=== PATIENT | female | born 1930 | race Caucasian/White ===

== ENCOUNTER 2016-10-25 10:43 | Inpatient (IN) | payer MEDICARE ==
[2016-10-25] MEDS ORDERED: FENTANYL 100 MCG/2 ML VIAL ONE (11:04)
[2016-10-25 11:47] LABS: ABSOLUTE NEUTROPHIL COUNT 8.5 K/mm3 (1.8-7.7); BASO % 0.4 % (0.2-1.0); EOS # 0.3 (0.0-0.5); EOS % 2.7 % (0.9-2.9); HEMATOCRIT 42.6 % (37.0-47.0); HEMOGLOBIN 13.8 gm/l (12.0-16.0); IMM NEUT # 0.1 K/mm3 (0-0.2); IMM NEUT% 0.7 % (0-1); LYMPH % 9.8 % (15-45); MEAN CELL VOLUME 99.1 fl (81.0-99.0); MEAN CORPUSCULAR HEMOGLOBIN 32.1 pg (27.0-31.0); MEAN CORPUSCULAR HGB CONC 32.4 g/dl (33.0-37.0); MEAN PLATELET VOLUME 12.5 fl (7.4-10.4); MONO # 0.5 (0.0-0.8); MONO % 5.1 % (4-12); NEUT % 81.3 % (43-75); PLATELET COUNT 127 K/mm3 (130-400)
[2016-10-25 11:58] LABS: INR 0.98; PARTIAL THROMBOPLASTIN TIME 22.7 SECONDS (24.5-33.0); PROTHROMBIN TIME 10.3 SECONDS (9.3-11.4)
[2016-10-25 11:59] LABS: CALCIUM 9.8 mg/dL (8.6-10.3)
--- NOTE | 2016-10-25 12:19 | RAD ---
RIGHT HIP AND AP PELVIS SERIES HISTORY: Status post fall with right hip pain. Frontal view of the pelvis with frontal and crosstable lateral views of the right hip. PELVIC RING: Grossly intact. HIP ALIGNMENT: Grossly unremarkable. HIP JOINT SPACES: Preserved. FRACTURE: Comminuted intertrochanteric fracture of the right proximal femur with notable varus angulation of the shaft. LUMBAR SPINE: Findings of prominent disc and facet degeneration. IMPRESSION: Comminuted intertrochanteric fracture of the right proximal femur with associated varus angulation.
--- NOTE | 2016-10-25 12:22 | RAD ---
PORTABLE CHEST RADIOGRAPH HISTORY: Preoperative assessment. Frontal portable chest radiograph dated 10/25/2016. COMPARISON: 03/15/2015. FINDINGS: FOCAL AIRSPACE OPACITY: No gross airspace consolidation. PLEURAL EFFUSION: None. CARDIOMEDIASTINAL SILHOUETTE: Aortic arch ectasia and calcification. PNEUMOTHORAX: None identified. OSSEOUS STRUCTURES: No grossly destructive lesions. SOFT TISSUES: Coarse calcification of the right breast, possibly related to a prior implant. This is unchanged. IMPRESSION: No acute cardiopulmonary process noted. 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
--- NOTE | 2016-10-25 12:45 | RAD ---
RIGHT KNEE 2 VIEWS HISTORY: Status post fall. Lateral and crosstable frontal views of the right knee. COMPARISON: None. ALIGNMENT: Grossly unremarkable.. JOINT SPACES: Minor medial joint space narrowing. JOINT EFFUSION: None identified taking into account obliquity. CALCIFICATIONS: No abnormal calcifications noted. FRACTURE: No displaced acute fracture. IMPRESSION: No displaced acute fracture. Minor joint space narrowing at the medial compartment..
[2016-10-25] MEDS ORDERED: ACETAMINOPHEN 325 MG TABLET PO PRN (13:53)
[2016-10-25] MEDS ORDERED: MAGNESIUM HYDROXIDE 30 ML UDCUP PO PRN ×2 (13:53→14:13)
[2016-10-25] MEDS ORDERED: MENTHOL/CETYLPYRD 1 EACH LOZENGE PO PRN (13:53)
[2016-10-25] MEDS ORDERED: BLISTEX LIPSTICK 1 EACH TP PRN (13:53)
[2016-10-25] MEDS ORDERED: SODIUM CHLORIDE 0.9% 100 ML IV PRN (13:53)
[2016-10-25] MEDS ORDERED: PNEUMOCOCCAL 23-VAL P-SAC VAC 0.5 ML VIAL IM V ONE (13:58)
[2016-10-25] MEDS ORDERED: SODIUM CHLORIDE 0.9% 500 ML IV SCH (14:00)
[2016-10-25 14:09] VITALS: BMI 28.0
[2016-10-25] MEDS ORDERED: ONDANSETRON 4 MG/2ML 2 ML VIAL IV PRN (14:16)
[2016-10-25] MEDS ORDERED: PUMP TUBING ONE ×2 (14:16→23:26)
[2016-10-25] MEDS ORDERED: HYDROMORPHONE HCL 1 MG/ML SYRINGE IV PRN (14:23)
[2016-10-25] MEDS: HYDROMORPHONE HCL 0.5 MG/0.5 ML SYRINGE IV PRN ×4 (14:27→23:32)
[2016-10-25 14:33] LABS: SPECIFIC GRAVITY 1.015 (1.001-1.030); URINE BILIRUBIN NEGATIVE (NEGATIVE); URINE BLOOD 1+ (NEGATIVE); URINE GLUCOSE (UA) NEGATIVE (NEGATIVE); URINE LEUKOCYTE ESTERASE 2+ (NEGATIVE); URINE NITRITE NEGATIVE (NEGATIVE); URINE PROTEIN NEGATIVE (NEGATIVE); URINE UROBILINOGEN NORMAL (0-1 mg/dl)
[2016-10-25 14:41] LABS: URINE APPEARANCE CLEAR; URINE COLOR YELLOW
[2016-10-25 14:47] LABS: URINE BACTERIA 1+; URINE EPITHELIAL CELLS 0-1 /hpf; URINE WBC 25-30 /hpf
--- NOTE | 2016-10-25 15:05 | PDOC36 ---
Provider Note Subject: Please see dictated ortho consult note for full consultation Summary 86F s/p fall from standing at [facility] with right hip and leg pain and inability to bear weight. The patient was diagnosed with a right comminuted intertrochanteric frx. Pt does ambulate and is in fairly good health. I spoke to her today after examining her about her options. Non-surgical treatment would lead to a low liklihood of this fracture healing. I would recommend a right hip open reduction and internal fixation with a placement of an intrameduallary nail. I spoke to the patient about the pros and cons of this procedure. The patient would like to discuss this with her daughter Jane who is her medical power of sports attorney. I gave Jane a call but she did not answer and I left a voicemail. I asked the patient to consider her options and I will try to speak with Jane later today. If we did do surgery I would like the patient to be NPO after 8am on Wednesday with plans to do surgery between 2pm and 4pm after my office hours are completed.
--- NOTE | 2016-10-25 16:17 | HP ---
LEOPOLDO MENG [id number] DATE OF : 1930 DATE OF ADMISSION: 10/25/2016 IDENTIFICATION: Ms. Meng is an 86-year-old followed by Dr. Philip. CHIEF COMPLAINT: Right hip pain. HISTORY OF PRESENT ILLNESS: The patient was ambulating today at about 9:30 when her legs got tangled up and she fell. She had immediate pain in the right hip and was unable to stand back up. She was brought to [facility] Emergency Room where x-ray reveals a comminuted intertrochanteric fracture of the right proximal femur. She was referred to the hospitalist service for admission and Dr. Tan for repair of the fracture. REVIEW OF SYSTEMS: HEENT: No headache, lightheadedness or loss of consciousness. She simply tripped. Denies current problems with ears, eyes, nose or throat. Respiratory: No dyspnea, or cough. Cardiac: No chest pain, or palpitations. Gastrointestinal: No nausea or vomiting. She does have some chronic reflux symptoms. She had some abdominal pain a few days ago, but that has resolved. She does tend toward constipation. No hematochezia, or melena. Genitourinary: No current symptoms, but frequent urinary tract infections. Musculoskeletal: She has chronic right shoulder pain, chronic back pain, and chronic mostly left hip pain. PAST MEDICAL HISTORY: 1. Hypertension. 2. Lumbar degenerative disk disease. 3. Gastroesophageal reflux disease. 4. Chronic anxiety and depression. 5. Chronic kidney disease stage III. 6. Cerebrovascular disease with evidence of small vessel disease on brain imaging. 7. Osteoporosis. 8. Recurrent urinary tract infection. 9. Diverticulosis. PAST SURGICAL HISTORY: 1. Bladder sling procedure. 2. 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 3. Bilateral breast reduction. 4. Partial colectomy. 5. Cholecystectomy. 6. Bilateral cataracts. ALLERGIES: REPORTED TO CEFUROXIME WHICH CAUSED SWELLING AND MUSCLE WEAKNESS. MEDICATIONS: 1. MiraLax 17 g by mouth daily. 2. Diltiazem ER 120 mg daily. 3. Docusate sodium 100 by mouth twice a day. 4. Losartan 25 by mouth twice a day. 5. Omeprazole 20 mg by mouth daily. 6. Milk of magnesia 30 mL by mouth daily as needed. 7. Alprazolam 1 mg at bedtime. 8. Bupropion SR 150 mg by mouth twice a day. 9. Nortriptyline 30 mg by mouth at bedtime. 10. Hydrocodone acetaminophen 5/325 two tablets which she is taking 3 times a day. 11. Sulfamethoxazole trimethoprim single strength 1 at bedtime. 12. Mylanta 30 mL as needed. 13. Diclofenac 1% gel she has been applying twice a day to the right shoulder. HABITS: No current or past tobacco, alcohol, or drugs. SOCIAL HISTORY: She is . She lives in [facility]. She does require their assistance with medication management. She is normally ambulatory with a walker and is able to dress herself, but does have assistance for bathing. IMMUNIZATIONS: She had a pneumonia vaccine in 2010, and a flu vaccination in fall 07/12. CODE STATUS: POLST form is DO NOT RESUSCITATE. FAMILY HISTORY: Positive for hypertension. PHYSICAL EXAMINATION: GENERAL: This is a pleasant elderly woman. She does appear to be in some discomfort with right hip pain. VITAL SIGNS: Temperature is 98.1 degrees Fahrenheit. Pulse is 85. Blood pressure is 203/81 with acute pain. Respiratory rate is 18. Oxygen saturation is 98% on room air. HEENT: Pupils equal, round, and reactive. Extraocular muscles intact status post lens replacement. Oropharynx is moist. Dentition in moderate condition. NECK: No jugular venous distention, or bruits. CHEST: Clear to auscultation. HEART: Regular with 2 to 3/6 systolic murmur that does radiate to the carotids. ABDOMEN: Soft, nontender, normal bowel tones. No organomegaly. EXTREMITIES: Decreased, but palpable dorsalis pedis pulses, right leg is externally rotated and shortened. NEUROLOGIC: Patient is alert and oriented, and does not show focal deficits. LABORATORY DATA: White blood cell count is 10.5, hemoglobin and hematocrit 13.8 and 42.6, and platelets 127. INR is 0.98. PTT is 22.7. Sodium is 135, potassium 4.5, chloride 98, C02 of 29, BUN 17, creatinine 0.9, and glucose 114. DIAGNOSTIC IMAGIN. Chest x-ray: No acute findings. 2. Pelvic x-ray: Right comminuted intertrochanteric femur fracture. 3. Knee x-ray: Osteoarthritis with joint space narrowing on the medial compartment, no acute fracture. 4. Electrocardiogram: Sinus rhythm with Q-wave in V1 through V4, prior anteroseptal myocardial infarction. No acute changes. ASSESSMENT: Ms. Pink is an 86-year-old assisted living resident who presents with acute right intertrochanteric femur fracture. She has underlying hypertension, gastroesophageal reflux disease, anxiety and depression, mild chronic kidney disease, and lumbar degenerative disk disease with osteoporosis. PLAN: 1. Admit to Med Surge. 2. Intravenous hydromorphone and ondansetron as needed for symptom control. 3. We will give her an IV fluid bolus now, and allow her to eat this evening and nothing by mouth after breakfast tomorrow for surgery tomorrow afternoon. 4. Start IV fluid hydration at midnight. 5. Continue outpatient medications except replace omeprazole with pantoprazole, and hold the hydrocodone. 6. Preoperative venous thromboembolism prophylaxis with intermittent pneumatic compression sleeves. Postoperative we will defer to orthopedic surgery. 7. DO NOT RESUSCITATE status. 8. Further care as indicated by clinical course. FERNANDO/hussein cc: Roman Philip MD
[2016-10-25] MEDS: PANTOPRAZOLE 40 MG TABLET DR PO SCH (16:26)
[2016-10-25] MEDS: HYDROCODONE/ACETAMINOPHEN 5/325MG TABLET PO PRN ×2 (17:46→20:53)
[2016-10-25] MEDS: SULFAMETH PO SCH (20:46)
[2016-10-25] MEDS: TRIMETH PO SCH (20:46)
[2016-10-25] MEDS: NORTRIPTYLINE HCL 10 MG CAPSULE PO SCH (20:49)
[2016-10-25] MEDS: LOSARTAN POTASSIUM 50 MG TABLET PO SCH (20:51)
[2016-10-25] MEDS: BUPROPION HCL 150 MG SR TABLET PO SCH (20:52)
[2016-10-25] MEDS: DOCUSATE SODIUM 100 MG CAPSULE PO SCH (20:53)
[2016-10-25] MEDS ORDERED: ALPRAZOLAM 0.25 MG TABLET PO SCH (21:00)
[2016-10-25] MEDS ORDERED: DOCUSATE SODIUM 100 MG CAPSULE PO SCH (21:00)
[2016-10-25] MEDS: D5 1/2NS with 20 mEq KCL 1,000 ML IV SCH (23:32)
[2016-10-26] MEDS ORDERED: CLINDAMYCIN 600 MG PREMIX 600 MG in Premix (D5W) 50 ml 1 EACH IV PRN (06:00)
[2016-10-26 06:03] LABS: CALCIUM 9.4 mg/dL (8.6-10.3); HEMATOCRIT 39.4 % (37.0-47.0); HEMOGLOBIN 13.3 gm/l (12.0-16.0); MEAN CELL VOLUME 98.3 fl (81.0-99.0); MEAN CORPUSCULAR HEMOGLOBIN 33.2 pg (27.0-31.0); MEAN CORPUSCULAR HGB CONC 33.8 g/dl (33.0-37.0); RED CELL DISTRIBUTION WIDTH 12.7 % (11.5-14.5)
[2016-10-26] MEDS: D5 1/2NS with 20 mEq KCL 1,000 ML IV SCH (07:19)
[2016-10-26] MEDS: HYDROMORPHONE HCL 0.5 MG/0.5 ML SYRINGE IV PRN ×2 (07:19→09:46)
[2016-10-26] MEDS: DILTIAZEM HCL CD 120 MG CAPSULE PO SCH (09:17)
[2016-10-26] MEDS: LOSARTAN POTASSIUM 50 MG TABLET PO SCH ×2 (09:17→21:46)
[2016-10-26] MEDS: PANTOPRAZOLE 40 MG TABLET DR PO SCH (09:20)
[2016-10-26] MEDS: POLYETHYLENE GLYCOL 3350 17 G POWD.SUSP PO SCH (09:21)
[2016-10-26] MEDS: BUPROPION HCL 150 MG SR TABLET PO SCH ×2 (09:21→21:45)
[2016-10-26] MEDS: DOCUSATE SODIUM 100 MG CAPSULE PO SCH ×2 (09:21→21:45)
[2016-10-26] MEDS ORDERED: IV START KIT ONE ×2 (09:22→14:56)
[2016-10-26] MEDS ORDERED: HYDROMORPHONE HCL 1 MG/ML SYRINGE IV PRN ×2 (09:44→16:26)
[2016-10-26] MEDS ORDERED: HYDROMORPHONE HCL 0.5 MG/0.5 ML SYRINGE IV PRN (09:44)
[2016-10-26] MEDS ORDERED: PROPOFOL 60 ML IV ONE (14:06)
[2016-10-26] MEDS ORDERED: LIDOCAINE 2% (PRES FREE) 5 ML VIAL ONE ×2 (14:06→19:20)
[2016-10-26] MEDS ORDERED: FENTANYL 100 MCG/2 ML VIAL ONE ×2 (14:07→18:19)
[2016-10-26] MEDS ORDERED: MIDAZOLAM HCL 1 MG/ML 2ML VIAL ONE (14:07)
[2016-10-26] MEDS ORDERED: LACTATED RINGERS 1,000 ML ONE (14:18)
[2016-10-26] MEDS ORDERED: CLINDAMYCIN 600 MG PREMIX 50 ML IV ONE (14:45)
[2016-10-26] MEDS ORDERED: SODIUM CHLORIDE 0.9% FLUSH 10 ML ONE (14:56)
[2016-10-26] MEDS ORDERED: SPINAL PROCEDURAL TRAY 1 EACH ONE (15:04)
[2016-10-26] MEDS ORDERED: KETAMINE HCL UD SYRINGE 100 MG/2 ML IV ONE (15:05)
--- NOTE | 2016-10-26 15:58 | CONS ---
LEOPOLDO MENG : 1930 [id number] DATE OF ADMISSION: October 25, 2016 CHIEF COMPLAINT: I fell trying to get a towel and hurt my right hip. HISTORY OF PRESENT ILLNESS: The patient is an 86-year-old female who sustained a fall at her assisted living, [facility], when she was walking across the room. The patient states she just lost her balance. She did not hit her head, resulting in falling directly on to her right side. She states that prior to this she had no pain on this side. Overall, the patient states that she has been in fairly good health. She has a number of different chronic medical problems, but no problems with ambulation prior to this. She has had some problems with her balance. The patient's PCP is Dr. Philip. Jane, who is her daughter, is her healthcare power of attorney at law, but is not here today. The patient would like to know my recommendations regarding her fracture and whether nonoperative or surgical treatment is warranted. 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 Thompson, spinal stenosis, ovarian cysts, urinary retention, as well as depression and anxiety. ALLERGIES: Cefuroxime and Amlodipine. I am not sure the reaction. MEDICATIONS: In looking at her [facility] chart, the patient's home medications include: Diclofenac [place], 5/325mg. Alprazolam Tylenol Motrin Milk of magnesia Chronic Bactrim due to her urinary condition. This is 400/80, 1 tab by mouth a day. Losartan, 25mg tabs, 1 tab twice a day. Diltiazem Nortriptyline Omeprazole Bupropion Colace Bisacodyl Daily aspirin SOCIAL HISTORY: The patient has 3 children. Her son Collin lives in [place], her other son Logan lives in [place] and her daughter Jane lives in [facility]. She is a . She was to close to 50 years. He was a systems checkout mechanic and they lived most of their lives in [place]. REVIEW OF SYSTEMS: The patient notes no recent fevers, colds, chills although she does have some problems with her balance. When Dr. Thompson saw her back in November of 2015 the patient had some evidence of trochanteric bursitis. Dr. Thompson gave her a left greater trochanteric injection which did not help her hip pain, which may be due to her underlying osteoarthritis. The patient states that overall she has been in good health. PHYSICAL EXAMINATION: Vital signs: Temperature on the floor is 98, the patient has an elevated BP of 195/102, heart rate 76, 93% on room air. HEENT: EOMI bilaterally HEART: Regular rate LUNGS: Clear to auscultation bilaterally. ABDOMEN: The patient has a well-healed scar on her abdomen from previous surgery. The patient is lying in her bed. She is very painful with any motion on the right leg, it is shortened and externally rotated. The patient has 4/5 strength of her EHL, TA, GA and peroneals on the right. On the left side, or the non-injured side, she has 5/5 strength of her EHL, TA, GA and peroneals. The patient has a 1+ PT pulse bilaterally. Capillary refill is less than 2 seconds. Any ROM or motion of the right leg is painful. The patient has full ROM of the left side. LABS: WBC: 10.5 Hematocrit: 42.6 Platelets: 127 Sodium: 135 Potassium: 4.5 Chloride: 98 Bi-carb: 29 BUN: 17 Creatinine: 0.9 Glucose: 114 INR: 0.98 The patient has a type and screen that has been ordered. The patient has an active DNR/DNI. RADIOGRAPHS: Xrays performed on 10/25/16 demonstrate signs of a comminuted right intertrochanteric fracture with a varus angulation of her femoral neck. The greater trochanter has collapsed into the shaft itself. The fracture itself goes into the lesser trochanter. The patient has a canal diameter between 11 and 12. On the lateral view the patient has a normal bow and the canal is measured on this view closer to 12mm at its isthmus. Knee xrays were normal; no signs of a more distal femoral fracture. Chest xray performed on 10/25/16 demonstrates aortic arc ectasia and some calcification. No gross destructive lesions, no calcification of the right breast, otherwise normal appearing findings. IMPRESSION: The patient is an 86-year-old female with signs of a comminuted right intertrochanteric fracture. PLAN: I talked to the patient regarding her injury. Because of her weightbearing status, which was weightbearing as tolerated, my recommendation for the patient would be to consider surgical treatment. My recommendation would be a right hip intertrochanteric cephalomedullary nail to help treat this fracture pattern. I told the patient that ideally we would do this surgery tomorrow. I told her the risks of treating her nonoperatively is that the patient would have an inability to bear weight on this leg, most likely resigning her to bed rest having increased morbidity and mortality. Because she was weightbearing prior to this injury, my recommendation would be for moving ahead with surgery acknowledging the fact that any surgery in somebody her age with her medical comorbidities is risky. For this reason her DNR/DNI would have to be suspended. I talked to the patient at length regarding this. She would feel more comfortable if she could talk to her daughter first, which is more than reasonable. I asked Dr. Warner to make her NPO after 8am and for the patient to f/u with me with a phone call as to what her decision would be. We will plan to potentially do this surgery tomorrow. I will order Clindamycin surgery consultant to the OR due to the fact that the patient has a Cephalosporin allergy. I asked the patient to call with any questions or concerns. Overnight we will treat her with [place] for pain control. BLP: CC: Norma Villagomez
[2016-10-26] MEDS ORDERED: ATROPINE SULFATE 0.4 MG/1 ML VIAL IV PRN (16:26)
[2016-10-26] MEDS ORDERED: PROMETHAZINE HCL 25 MG/ML VIAL IM PRN (16:26)
[2016-10-26] MEDS ORDERED: MEPERIDINE 25 MG/ML SYRINGE IV PRN (16:26)
[2016-10-26] MEDS ORDERED: FENTANYL 100 MCG/2 ML VIAL IV PRN (16:26)
[2016-10-26] MEDS ORDERED: NALOXONE HCL 0.4 MG/ML VIAL IV PRN (16:26)
[2016-10-26] MEDS ORDERED: ONDANSETRON 4 MG/2ML 2 ML VIAL IV PRN ×2 (16:26→20:22)
[2016-10-26] MEDS ORDERED: LACTATED RINGERS 1,000 ML IV SCH (16:30)
[2016-10-26] MEDS ORDERED: PHENYLEPHRINE 10 MG/1 ML (1%) VIAL ONE (16:33)
--- NOTE | 2016-10-26 20:09 | PCMBPN ---
Brief Post Op Note: Date of Procedure: 10/26/16 Preoperative Diagnosis: 1. Right hip intertrochanteric fracture Postoperative Diagnosis: 1. [Same] Procedure: right hip intertrochanteric frx open reduction and internal fixation with placement of an intrameduallary nail Surgeon: Gary Tan MD Assist: Avni GROVE Anesthesia: spinal Findings: Pt had a comminuted greater trochanter and continued varus position of the femoral neck. A Morse and Nephew Intertan Long nail 36mm x 10mm. Reamed up to 12.5mm with a 90mm femoral neck screw, 85 compression screw. 35mm and 40mm distal locking screws Condition: stable vitals, transferred to pacu Complications: None IV Fluids: 2200 mLs of LR Urine Output: 120 mLs Estimated Blood Loss: 150 mLs Tourniquet Time: [N/A] Specimens: [N/A] Implants: Morse and Nephew Intertan Nail Drains: [N/A] PLAN: WBAT On the RLE. Lovenox of DVT prophylaxis. Oxycodone and Morphine for pain control.
[2016-10-26] MEDS ORDERED: CALCIUM CARBONATE 500 MG TAB.CHEW PO PRN (20:22)
[2016-10-26] MEDS ORDERED: MORPHINE SULFATE 4 MG/ML SYRINGE IV PRN (20:22)
--- NOTE | 2016-10-26 20:24 | RAD ---
PELVIS COMPARISON: Pelvis and right hip, 10/25/2016 HISTORY: Medially postop open reduction internal fixation of right hip fracture. FINDINGS: Views: AP pelvis. Bones: Reduction of right femur intertrochanteric fracture with placement of antegrade intramedullary nail and 2 screws in the right femoral head and neck. Joints: Normal. Soft tissues: Normal. IMPRESSION: 1. Successful reduction of right femur intertrochanteric fracture with internal fixation hardware in satisfactory position.
--- NOTE | 2016-10-26 20:29 | RAD ---
HIP RIGHT 1 VIEW COMPARISON: Right femur 2 views 10/26/2016. HISTORY: Immediately postop open reduction internal fixation of right femur intertrochanteric fracture. FINDINGS: Views: Crosstable lateral view of the right hip. Bones: Satisfactory position of the internal fixation hardware across the intertrochanteric fracture. Joints: Normal. Soft tissues: Normal. IMPRESSION: 1. Satisfactory position of the internal fixation hardware across the intertrochanteric fracture.
--- NOTE | 2016-10-26 20:31 | RAD ---
FEMUR RIGHT COMPARISON: Pelvis one view, 10/26/2016 HISTORY: Immediately postop open reduction internal fixation of right femur intertrochanteric fracture. Views: Right femur AP and lateral FINDINGS: Bones: The distal end of the intramedullary nail was imaged. Satisfactory position. Joints: Normal lateral view of the right knee. Soft tissues: Normal. IMPRESSION: Satisfactory position of the intramedullary nail in the right femur.
--- NOTE | 2016-10-26 20:43 | RAD ---
HIP RIGHT 2 VIEWS PORTABLE COMPARISON: Pelvis and right hip, 3 views, 10/25/2016 HISTORY: Intraoperative radiographs, open reduction internal fixation of right femur intertrochanteric fracture. FINDINGS: Views: AP and lateral views of the right femur. Fluoroscopy time 358.8 seconds Bones: Satisfactory positioning of the internal fixation hardware, including an intramedullary nail and 2 screws in the right femoral neck and head. Satisfactory repositioning of the displaced intertrochanteric fracture. Joints: Normal. Soft tissues: Normal. IMPRESSION: 1. Satisfactory positioning of right femur intertrochanteric fracture after open reduction internal fixation.
[2016-10-26] MEDS ORDERED: PUMP TUBING ONE (21:33)
[2016-10-26] MEDS: LACTATED RINGERS 1,000 ML IV SCH (21:40)
[2016-10-26] MEDS: NORTRIPTYLINE HCL 10 MG CAPSULE PO SCH (21:45)
[2016-10-26] MEDS: ASCORBIC ACID 500 MG TABLET PO SCH (21:45)
[2016-10-26] MEDS: ALPRAZOLAM 1 MG TABLET PO SCH (21:45)
[2016-10-26] MEDS: ACETAMINOPHEN 500 MG TABLET PO SCH (21:45)
[2016-10-26] MEDS: TRIMETH PO SCH (21:46)
[2016-10-26] MEDS: SULFAMETH PO SCH (21:46)
[2016-10-26] MEDS: CLINDAMYCIN 600 MG PREMIX 600 MG in Premix (D5W) 50 ml 1 EACH IV SCH (21:55)
--- NOTE | 2016-10-26 22:34 | PDOC43 ---
- Subjective Chief Complaint: Rt. hip pain Subjective: Reports Pain Tolerable, Denies Chest Pain, Denies Fever - Objective Vital Signs Temperature 97.9 F 10/26/16 21:05 Pulse Rate 81 10/26/16 21:05 Respiratory Rate 18 10/26/16 21:05 Blood Pressure 157/76 10/26/16 21:05 O2 Saturation by Pulse Oximetry 96 10/26/16 21:05 Oxygen Delivery Method Non-Rebreather Oxygen Flow Rate 10 Intake and Output 10/25/16 10/26/16 10/27/16 06:59 06:59 06:59 Intake Total 480 1184 Output Total 700 Balance -220 1184 General: Alert, Oriented x3, Cooperative, No Acute Distress HEENT: Mucous membr. moist/pink Lungs: Clear to Auscultation Bilaterally Cardiovascular: Regular Rate and Rhythm Abdomen: Soft, Normal Bowel Sounds, Non-Distended, No Tenderness Extremities: No Edema Skin: Warm, Dry, Intact Wound: Dressing Clean/Dry/Intact Laboratory 10/26/16 05:15 10/26/16 05:15 10/26/16 05:15 RBC 4.01 L MCH 33.2 H Anion Gap 7 L Estimated GFR 79 H Current Medications: Current meds reviewed in EMR. - Problems: Assessment/Plan (1) Femur fracture, right Qualifiers: Encounter type: initial encounter Femur location: intertrochanteric Fracture type: closed Fracture alignment: displaced Qualifier Code: ( S72.141A) Displaced intertrochanteric fracture of right femur, initial encounter for closed fracture Status: Acute Assessment/Plan: S/P ORIF today without complications-per ortho (2) CKD (chronic kidney disease) stage 3, GFR 30-59 ml/min Status: Chronic Assessment/Plan: Per H and P but GFR currently 79 (3) GERD (gastroesophageal reflux disease) Qualifiers: Esophagitis presence: esophagitis presence not specified Qualifier Code : (K21.9) Gastro-esophageal reflux disease without esophagitis Status: Chronic Assessment/Plan: stable on PPI therapy (4) HTN (hypertension), benign Status: Chronic Assessment/Plan: Parameters for meds ordered (5) Lumbar degenerative disc disease Status: Chronic Assessment/Plan: with some chronic LBP (6) Osteoporosis Status: Chronic Assessment/Plan: associated with femur fracture-calcium plus D-further Rx deferred to outpatient provider (7) ASB (asymptomatic bacteriuria) Status: Acute Assessment/Plan: awaiting Cx results, on Bactrim prophylactic therapy VTE Prophylaxis: mech measures Disposition: likely will need SNF care
[2016-10-27] MEDS: OXYCODONE HCL 5 MG TABLET PO PRN ×2 (00:59→09:09)
[2016-10-27] MEDS: MORPHINE SULFATE 2 MG/ML SYRINGE IV PRN (02:47)
[2016-10-27] MEDS: CLINDAMYCIN 600 MG PREMIX 600 MG in Premix (D5W) 50 ml 1 EACH IV SCH (04:04)
[2016-10-27] MEDS: ACETAMINOPHEN 500 MG TABLET PO SCH ×5 (04:04→21:29)
[2016-10-27 06:06] LABS: HEMATOCRIT 28.8 % (37.0-47.0); HEMOGLOBIN 9.6 gm/l (12.0-16.0); MEAN CELL VOLUME 97.6 fl (81.0-99.0); MEAN CORPUSCULAR HEMOGLOBIN 32.5 pg (27.0-31.0); MEAN CORPUSCULAR HGB CONC 33.3 g/dl (33.0-37.0); RED CELL DISTRIBUTION WIDTH 12.5 % (11.5-14.5)
[2016-10-27 06:23] LABS: CALCIUM 8.9 mg/dL (8.6-10.3)
[2016-10-27] MEDS: LACTATED RINGERS 1,000 ML IV SCH ×2 (06:26→14:49)
[2016-10-27] MEDS: D5 1/2NS with 20 mEq KCL 1,000 ML IV SCH (07:17)
--- NOTE | 2016-10-27 07:46 | PDOC43 ---
- Subjective Subjective: Reports Pain Tolerable (Pt says she is doing ok from a pain control standpoint but is a bit confused. Family is not here yet this morning to establish if this is her baseline), Reports Vomiting, Denies Chest Pain, Denies Shortness of Breath, Denies Nausea - Objective Vital Signs Temperature 98.4 F 10/27/16 02:36 Pulse Rate 98 10/27/16 02:36 Respiratory Rate 20 10/27/16 02:36 Blood Pressure 158/69 10/27/16 02:36 O2 Saturation by Pulse Oximetry 98 10/27/16 02:36 Oxygen Delivery Method Nasal Cannula Oxygen Flow Rate 2 Laboratory 10/27/16 05:15 10/27/16 05:15 10/27/16 05:15 RBC 2.95 L MCH 32.5 H Estimated GFR 94 H Active Medication Orders Category Date Time Status Acetaminophen [Tylenol] Med 10/26/16 22:00 Active 1,000 mg PO Q6H Alprazolam [Xanax] Med 10/26/16 21:00 Active 1 mg PO BEDTIME Ascorbic Acid [Vitamin C] Med 10/26/16 21:00 Active 500 mg PO BID Bisacodyl [Dulcolax] Med 10/29/16 19:39 Active 10 mg NM DAILY PRN Bupropion HCl [Wellbutrin Sr] Med 10/25/16 21:00 Active 150 mg PO BID Calcium Carbonate [Tums] Med 10/26/16 20:22 Active 1,000 - 2,000 mg PO Q2H PRN Calcium Carbonate/Vitamin D3 Med 10/27/16 09:00 Active 1 each PO BID Diltiazem HCl Cd [Cardizem Cd] Med 10/26/16 09:00 Active 120 mg PO DAILY Docusate Sodium [Colace] Med 10/26/16 21:00 Active 100 mg PO BID Enoxaparin Sodium [Lovenox] Med 10/27/16 18:08 Active 40 mg SUB-Q Q24H Lactated Ringers 1,000 ml Med 10/26/16 20:22 Active IV 125 mls/hr Lip [place] [Blistex] Med 10/25/16 13:53 Active 1 each TP PRN PRN Losartan Potassium [Cozaar] Med 10/25/16 21:00 Active 25 mg PO BID Magnesium Hydroxide [Milk of Magnesia] Med 10/27/16 19:39 Active 30 ml PO DAILY PRN Menthol/Cetylpyridinium [Cepacol] Med 10/25/16 13:53 Active 1 each PO PRN PRN Morphine Sulfate Med 10/26/16 20:22 Active 2 - 4 mg IV Q4H PRN Morphine Sulfate Med 10/26/16 20:32 Active 2 - 4 mg IV Q4H PRN Multivitamins [One-A-Day] Med 10/27/16 09:00 Active 1 tab PO DAILY Nortriptyline HCl [Pamelor] Med 10/25/16 21:00 Active 30 mg PO BEDTIME Ondansetron 4 mg/2ml Vial [Zofran] Med 10/26/16 20:22 Active 4 - 6 mg IV Q6H PRN Oxycodone HCl [Roxicodone] Med 10/26/16 20:22 Active 5 - 10 mg PO Q4H PRN Pantoprazole Sodium [Protonix] Med 10/25/16 14:00 Active 40 mg PO DAILY Polyethylene Glycol 3350 [Miralax] Med 10/26/16 09:00 Active 17 g PO DAILY Sodium Chloride 0.9% Flush [Normal Saline 10ml Flush] Med 10/26/16 20:22 Active 10 - 50 ml IV PRN PRN Sodium Chloride 0.9% Flush [Normal Saline 10ml Flush] Med 10/27/16 01:00 Active 10 ml IV Q8HR Sulfamethoxazole/Trimethoprim [Septra Ss] Med 10/25/16 21:00 Active 1 each PO BEDTIME Intake and Output 10/25/16 10/26/16 10/27/16 23:59 23:59 23:59 Intake Total 480 1184 3963 Output Total 700 1920 Balance -220 1184 2043 General: Afebrile - Right Lower Extremity Incision: Dressing Clean/Dry/Intact, Sullivan Intact, No Erythema, No Ecchymosis Motor: Extensor Hallucis Longus: 4/5, Tibialis Anterior: 4/5, Gastrocnemius: 4/5 , Peroneals: 4/5 Gross Sensation to Light Touch: Present: Deep Peroneal Nerve, Superficial Peroneal Nerve Capillary Refill: < 3 Seconds - Problems (1) Fracture, intertrochanteric, right femur Status: Acute - Disposition POD#1 s/p right hip intertrochanteric frx ORIF with IMN --WBAT on the RLE for transfers bed to chair --Lovenox for DVT on POD#1 --Clinda for 24 hours post-op --PT and OT to work with pt today --HCT is 28. If pt is orthostatic, would consider transfusion of PRBCs
[2016-10-27] MEDS ORDERED: HYDROCODONE/ACETAMINOPHEN 5/325MG TABLET PO PRN (08:56)
[2016-10-27] MEDS ORDERED: CALCIUM CARBONATE 600 MG/VITAMIN D3 400 UNIT/TABLET PO SCH (09:00)
[2016-10-27] MEDS: POLYETHYLENE GLYCOL 3350 17 G POWD.SUSP PO SCH (09:07)
[2016-10-27] MEDS: PANTOPRAZOLE 40 MG TABLET DR PO SCH (09:09)
[2016-10-27] MEDS: DOCUSATE SODIUM 100 MG CAPSULE PO SCH ×2 (09:09→20:53)
[2016-10-27] MEDS: DILTIAZEM HCL CD 120 MG CAPSULE PO SCH (09:09)
[2016-10-27] MEDS: LOSARTAN POTASSIUM 50 MG TABLET PO SCH ×2 (09:09→20:54)
[2016-10-27] MEDS: MULTIVITAMINS 1 TAB TABLET PO SCH (09:10)
[2016-10-27] MEDS: ASCORBIC ACID 500 MG TABLET PO SCH ×2 (09:10→20:53)
[2016-10-27] MEDS: BUPROPION HCL 150 MG SR TABLET PO SCH ×2 (09:10→20:53)
[2016-10-27] MEDS: CEFTRIAXONE 1 GRAM DUPLEX 1 G in Premix (D5W) 50 ml 1 EACH IV SCH (09:48)
--- NOTE | 2016-10-27 12:48 | PDOC43 ---
- Subjective Chief Complaint: Rt. hip pain Sitting up in chair, alert and oriented. Reports only minimal right hip pain, no dyspnea or faintness. - Objective Vital Signs Temperature 98.6 F 10/27/16 11:05 Pulse Rate 106 10/27/16 11:05 Respiratory Rate 16 10/27/16 11:05 Blood Pressure 129/63 10/27/16 11:05 O2 Saturation by Pulse Oximetry 90 10/27/16 11:05 Oxygen Delivery Method Room Air Oxygen Flow Rate 0 Intake and Output 10/26/16 10/27/16 10/28/16 06:59 06:59 06:59 Intake Total 480 5147 700 Output Total 700 1920 Balance -220 3227 700 General: Alert, Oriented x3, Cooperative, No Acute Distress HEENT: Mucous membr. moist/pink Lungs: Clear to Auscultation Bilaterally Cardiovascular: Regular Rate and Rhythm, Murmur (2/6) Abdomen: Soft, Normal Bowel Sounds, No Tenderness, No Masses Extremities: Pulses Diminished but Palpable, No Edema Wound: Dressing Clean/Dry/Intact (on right hip) Neurological: Normal Speech Psych/Mental Status: Normal Mood Laboratory 10/27/16 05:15 10/27/16 05:15 10/27/16 05:15 RBC 2.95 L MCH 32.5 H Estimated GFR 94 H Current Medications: Current meds reviewed in EMR. - Problems: Assessment/Plan (1) Fracture, intertrochanteric, right femur Qualifiers: Encounter type: initial encounter Fracture type: closed Qualifier Code: (S72.141A) Displaced intertrochanteric fracture of right femur, initial encounter for closed fracture Status: Acute Assessment/Plan: S/P repair by Dr Tan 10/26 p.m. Appreciate orthopedic and OT/PT care. Doing well. (2) Anxiety and depression Status: Chronic Assessment/Plan: Stable (3) CKD (chronic kidney disease) stage 3, GFR 30-59 ml/min Status: Chronic Assessment/Plan: Stable (4) CVD (cerebrovascular disease) Status: Chronic Assessment/Plan: stable (5) GERD (gastroesophageal reflux disease) Qualifiers: Esophagitis presence: esophagitis presence not specified Qualifier Code : (K21.9) Gastro-esophageal reflux disease without esophagitis Status: Chronic Assessment/Plan: stable on PPI therapy (6) HTN (hypertension), benign Status: Chronic Assessment/Plan: Parameters for meds ordered (7) Lumbar degenerative disc disease Status: Chronic Assessment/Plan: with some chronic LBP (8) Osteoporosis Status: Chronic Assessment/Plan: associated with femur fracture-calcium plus D, bisphosphonate treatment deferred to outpatient provider (9) Acute blood loss anemia Status: Acute Assessment/Plan: Moderate but asymptomatic, iron supplement, transfusion not indicated at this point. (10) UTI (urinary tract infection) Qualifiers: Urinary tract infection type: acute cystitis Hematuria presence: without hematuria Qualifier Code: (N30.00) Acute cystitis without hematuria Status: Acute Assessment/Plan: With Proteus mirabilis present on admit but asymptomatic. Treated with ceftriaxone. (11) Hyponatremia Status: Acute Assessment/Plan: due to IVF hydration, SL IV and repeat BMP in a.m. VTE Prophylaxis: enoxaparin started today. Disposition: likely will need SNF care
[2016-10-27] MEDS: CALCIUM CARBONATE 600 MG/VITAMIN D3 400 UNIT/TABLET PO SCH ×2 (14:11→20:53)
[2016-10-27] MEDS: ASCORBIC ACID 250 MG TABLET PO SCH (14:11)
[2016-10-27] MEDS: FERROUS SULFATE (65 Fe) 325 MG TABLET PO SCH (14:11)
[2016-10-27] MEDS: ENOXAPARIN SODIUM 40 MG/0.4 ML SYRINGE SUB-Q SCH (17:07)
[2016-10-27] MEDS ORDERED: MAGNESIUM HYDROXIDE 30 ML UDCUP PO PRN (19:39)
[2016-10-27] MEDS: ALPRAZOLAM 1 MG TABLET PO SCH (20:54)
[2016-10-27] MEDS: NORTRIPTYLINE HCL 10 MG CAPSULE PO SCH (20:54)
[2016-10-28] MEDS: OXYCODONE HCL 5 MG TABLET PO PRN ×4 (02:36→15:33)
[2016-10-28] MEDS: ACETAMINOPHEN 500 MG TABLET PO SCH ×6 (02:36→21:32)
[2016-10-28] MEDS ORDERED: IV START KIT ONE ×3 (05:16→23:37)
[2016-10-28] MEDS ORDERED: SODIUM CHLORIDE 0.9% FLUSH 10 ML ONE (05:17)
[2016-10-28 05:51] LABS: HEMATOCRIT 26.4 % (37.0-47.0); HEMOGLOBIN 8.8 gm/l (12.0-16.0); MEAN CELL VOLUME 97.4 fl (81.0-99.0); MEAN CORPUSCULAR HEMOGLOBIN 32.5 pg (27.0-31.0); MEAN CORPUSCULAR HGB CONC 33.3 g/dl (33.0-37.0); RED CELL DISTRIBUTION WIDTH 12.9 % (11.5-14.5)
--- NOTE | 2016-10-28 08:29 | PDOC43 ---
- Subjective Subjective: Reports Other (moderate deep mid thigh pain, did not sleep well last night--c/o commotion in room last night. RN states patient pulled off her distal femur small post op dressing last night and patient pulled out her Stack. ), Denies Chest Pain, Denies Shortness of Breath, Denies Nausea, Denies Vomiting , Denies Fever - Objective Vital Signs Temperature 97.5 F 10/28/16 03:46 Pulse Rate 100 10/28/16 03:46 Respiratory Rate 17 10/28/16 07:00 Blood Pressure 157/66 10/28/16 03:46 O2 Saturation by Pulse Oximetry 94 10/28/16 03:46 Oxygen Delivery Method Room Air Oxygen Flow Rate 0 Laboratory 10/28/16 05:15 10/28/16 05:15 RBC 2.71 L MCH 32.5 H Active Medication Orders Category Date Time Status Acetaminophen [Tylenol] Med 10/26/16 22:00 Active 1,000 mg PO Q6H Alprazolam [Xanax] Med 10/26/16 21:00 Active 1 mg PO BEDTIME Ascorbic Acid [Vitamin C] Med 10/27/16 12:45 Active 250 mg PO DAILY Ascorbic Acid [Vitamin C] Med 10/26/16 21:00 Active 500 mg PO BID Bisacodyl [Dulcolax] Med 10/29/16 19:39 Active 10 mg MN DAILY PRN Bupropion HCl [Wellbutrin Sr] Med 10/25/16 21:00 Active 150 mg PO BID Calcium Carbonate [Tums] Med 10/26/16 20:22 Active 1,000 - 2,000 mg PO Q2H PRN Calcium Carbonate/Vitamin D3 Med 10/27/16 15:00 Active 1 each PO TID Ceftriaxone 1 Gram Duplex [Rocephin 1 Gram Premix] 1 g Med 10/27/16 10:00 Active Premix (D5W) 50 ml 1 each IV Q24H Diltiazem HCl Cd [Cardizem Cd] Med 10/26/16 09:00 Active 120 mg PO DAILY Docusate Sodium [Colace] Med 10/26/16 21:00 Active 100 mg PO BID Enoxaparin Sodium [Lovenox] Med 10/27/16 18:08 Active 40 mg SUB-Q Q24H FERROUS SULFATE (65 Fe) [Ferrous Sulfate] Med 10/27/16 12:45 Active 325 mg PO DAILY Lip [place] [Blistex] Med 10/25/16 13:53 Active 1 each TP PRN PRN Losartan Potassium [Cozaar] Med 10/25/16 21:00 Active 25 mg PO BID Magnesium Hydroxide [Milk of Magnesia] Med 10/27/16 19:39 Active 30 ml PO DAILY PRN Menthol/Cetylpyridinium [Cepacol] Med 10/25/16 13:53 Active 1 each PO PRN PRN Morphine Sulfate Med 10/26/16 20:22 Active 2 - 4 mg IV Q4H PRN Morphine Sulfate Med 10/26/16 20:32 Active 2 - 4 mg IV Q4H PRN Multivitamins [One-A-Day] Med 10/27/16 09:00 Active 1 tab PO DAILY Nortriptyline HCl [Pamelor] Med 10/25/16 21:00 Active 30 mg PO BEDTIME Ondansetron 4 mg/2ml Vial [Zofran] Med 10/26/16 20:22 Active 4 - 6 mg IV Q6H PRN Oxycodone HCl [Roxicodone] Med 10/26/16 20:22 Active 5 - 10 mg PO Q4H PRN Pantoprazole Sodium [Protonix] Med 10/25/16 14:00 Active 40 mg PO DAILY Polyethylene Glycol 3350 [Miralax] Med 10/26/16 09:00 Active 17 g PO DAILY Sodium Chloride 0.9% Flush [Normal Saline 10ml Flush] Med 10/26/16 20:22 Active 10 - 50 ml IV PRN PRN Sodium Chloride 0.9% Flush [Normal Saline 10ml Flush] Med 10/27/16 01:00 Active 10 ml IV Q8HR Sulfamethoxazole/Trimethoprim [Septra Ss] Med 10/25/16 21:00 Hold 1 each PO BEDTIME Intake and Output 10/26/16 10/27/16 10/28/16 23:59 23:59 23:59 Intake Total 1184 5720 300 Output Total 3220 700 Balance 1184 2500 -400 General: No Acute Distress Lungs: Normal Air Movement (no SOB with rising from chair--sitting to standing while wound is assessed.) Abdomen: Soft, No Tenderness Genitourinary: No Indwelling Urinary Cath (patient pulled Stack out last night) Skin: No Normal Color (slight facial pallor) Neurological: Alert, Normal Speech Psych/Mental Status: Normal Affect Peripheral Pulses: Right Dorsalis Pedis: 1+ - Right Lower Extremity Incision: Dressing Clean/Dry/Intact, Well Approximated, [place] Intact, Other ( scant blood on chux pad where sitting likely from pulling Stack catheter out) Motor: Extensor Hallucis Longus: 5/5, Tibialis Anterior: 5/5, Gastrocnemius: 5/5 , Peroneals: 5/5, Quadriceps: 4/5 Gross Sensation to Light Touch: Present: Deep Peroneal Nerve, Superficial Peroneal Nerve, Medial Plantar Nerve, Lateral Plantar Nerve, Sural Nerve, Saphenous Nerve Capillary Refill: < 3 Seconds Motion: Hip PROM: 0-40 flexion, ABD 0-20, ADD 0-10 - Disposition POD#2 s/p right hip intertrochanteric frx ORIF with IMN --pain is well controlled --WBAT on the RLE for transfers bed to chair --Cont Lovenox for DVT --PT and OT cont to work with pt today --HCT is 26. If pt becomes orthostatic, would consider transfusion of PRBCs-- discussed with Hospitalist.
[2016-10-28 08:42] LABS: CALCIUM 9.5 mg/dL (8.6-10.3)
[2016-10-28] MEDS: CALCIUM CARBONATE 600 MG/VITAMIN D3 400 UNIT/TABLET PO SCH ×3 (09:38→20:55)
[2016-10-28] MEDS: DILTIAZEM HCL CD 120 MG CAPSULE PO SCH (09:38)
[2016-10-28] MEDS: DOCUSATE SODIUM 100 MG CAPSULE PO SCH ×2 (09:38→20:55)
[2016-10-28] MEDS: LOSARTAN POTASSIUM 50 MG TABLET PO SCH ×2 (09:39→20:54)
[2016-10-28] MEDS: FERROUS SULFATE (65 Fe) 325 MG TABLET PO SCH (09:40)
[2016-10-28] MEDS: POLYETHYLENE GLYCOL 3350 17 G POWD.SUSP PO SCH (09:40)
[2016-10-28] MEDS: BUPROPION HCL 150 MG SR TABLET PO SCH ×2 (09:41→20:55)
[2016-10-28] MEDS: MULTIVITAMINS 1 TAB TABLET PO SCH (09:41)
[2016-10-28] MEDS: PANTOPRAZOLE 40 MG TABLET DR PO SCH (09:41)
[2016-10-28] MEDS: ASCORBIC ACID 250 MG TABLET PO SCH (09:41)
[2016-10-28] MEDS: ASCORBIC ACID 500 MG TABLET PO SCH ×2 (09:41→20:56)
[2016-10-28] MEDS: CEFTRIAXONE 1 GRAM DUPLEX 1 G in Premix (D5W) 50 ml 1 EACH IV SCH (10:15)
--- NOTE | 2016-10-28 11:20 | PDOC43 ---
- Subjective Chief Complaint: Rt. hip pain Sitting up in chair, denies pain, dyspnea or faintness when standing - Objective Vital Signs Temperature 98.4 F 10/28/16 08:37 Pulse Rate 101 10/28/16 08:37 Respiratory Rate 18 10/28/16 08:37 Blood Pressure 157/69 10/28/16 08:37 O2 Saturation by Pulse Oximetry 90 10/28/16 08:37 Oxygen Delivery Method Room Air Oxygen Flow Rate 0 Intake and Output 10/27/16 10/28/16 10/29/16 06:59 06:59 06:59 Intake Total 5147 7 Output Total 1920 1999 Balance 3227 57 General: Alert, Oriented x3, Cooperative, No Acute Distress HEENT: Mucous membr. moist/pink Lungs: Clear to Auscultation Bilaterally Cardiovascular: Regular Rate and Rhythm, Murmur (2/6) Abdomen: Soft, Normal Bowel Sounds, No Tenderness, No Masses Extremities: Edema, Normal Pulses Skin: Normal Color Neurological: Normal Speech Psych/Mental Status: Normal Mood Laboratory 10/28/16 05:15 10/28/16 05:15 10/28/16 05:15 RBC 2.71 L MCH 32.5 H Current Medications: Current meds reviewed in EMR. - Problems: Assessment/Plan (1) Fracture, intertrochanteric, right femur Qualifiers: Encounter type: initial encounter Fracture type: closed Qualifier Code: (S72.141A) Displaced intertrochanteric fracture of right femur, initial encounter for closed fracture Status: Acute Assessment/Plan: S/P repair by Dr Tan 10/26 p.m. Appreciate orthopedic and OT/PT care. Doing well. (2) Anxiety and depression Status: Chronic Assessment/Plan: Stable (3) CKD (chronic kidney disease) stage 3, GFR 30-59 ml/min Status: Chronic Assessment/Plan: Stable (4) CVD (cerebrovascular disease) Status: Chronic Assessment/Plan: stable (5) GERD (gastroesophageal reflux disease) Qualifiers: Esophagitis presence: esophagitis presence not specified Qualifier Code : (K21.9) Gastro-esophageal reflux disease without esophagitis Status: Chronic Assessment/Plan: stable on PPI therapy (6) HTN (hypertension), benign Status: Chronic Assessment/Plan: Parameters for meds ordered (7) Lumbar degenerative disc disease Status: Chronic Assessment/Plan: with some chronic LBP (8) Osteoporosis Status: Chronic Assessment/Plan: associated with femur fracture-calcium plus D started, bisphosphonate treatment deferred to outpatient provider (9) Acute blood loss anemia Status: Acute Assessment/Plan: Moderate but asymptomatic, iron supplement, transfusion not indicated at this point. (10) UTI (urinary tract infection) Qualifiers: Urinary tract infection type: acute cystitis Hematuria presence: without hematuria Qualifier Code: (N30.00) Acute cystitis without hematuria Status: Acute Assessment/Plan: With Proteus mirabilis present on admit but asymptomatic. Treated with ceftriaxone. (11) Hyponatremia Status: Acute Assessment/Plan: due to IVF hydration, resolved VTE Prophylaxis: enoxaparin started 10/27 Disposition: Plan to discharge to [facility] 10/29.
[2016-10-28] MEDS: ENOXAPARIN SODIUM 40 MG/0.4 ML SYRINGE SUB-Q SCH (18:23)
[2016-10-28] MEDS: ALPRAZOLAM 1 MG TABLET PO SCH (20:55)
[2016-10-28] MEDS: NORTRIPTYLINE HCL 10 MG CAPSULE PO SCH (20:59)
[2016-10-28] MEDS: MORPHINE SULFATE 2 MG/ML SYRINGE IV PRN ×2 (21:19→23:50)
[2016-10-29] MEDS: MORPHINE SULFATE 2 MG/ML SYRINGE IV PRN ×2 (01:56→05:33)
[2016-10-29] MEDS: ACETAMINOPHEN 500 MG TABLET PO SCH ×2 (05:33→09:13)
[2016-10-29 05:59] LABS: HEMATOCRIT 25.6 % (37.0-47.0); HEMOGLOBIN 8.5 gm/l (12.0-16.0)
[2016-10-29 07:15] VITALS: BP 108/69
[2016-10-29] MEDS ORDERED: TRAMADOL HCL 50 MG TABLET PO PRN (07:33)
[2016-10-29] MEDS ORDERED: BISACODYL 10 MG SUP ONE (07:42)
[2016-10-29] MEDS ORDERED: CEPHALEXIN 500 MG CAPSULE PO SCH (09:00)
[2016-10-29] MEDS: DILTIAZEM HCL CD 120 MG CAPSULE PO SCH (09:05)
[2016-10-29] MEDS: DOCUSATE SODIUM 100 MG CAPSULE PO SCH (09:05)
[2016-10-29] MEDS: LOSARTAN POTASSIUM 50 MG TABLET PO SCH (09:05)
[2016-10-29] MEDS: POLYETHYLENE GLYCOL 3350 17 G POWD.SUSP PO SCH (09:05)
[2016-10-29] MEDS: BUPROPION HCL 150 MG SR TABLET PO SCH (09:13)
[2016-10-29] MEDS: MULTIVITAMINS 1 TAB TABLET PO SCH (09:13)
[2016-10-29] MEDS: CALCIUM CARBONATE 600 MG/VITAMIN D3 400 UNIT/TABLET PO SCH (09:13)
[2016-10-29] MEDS: ASCORBIC ACID 250 MG TABLET PO SCH (09:13)
[2016-10-29] MEDS: PANTOPRAZOLE 40 MG TABLET DR PO SCH (09:13)
[2016-10-29] MEDS: FERROUS SULFATE (65 Fe) 325 MG TABLET PO SCH (09:13)
[2016-10-29] MEDS: ASCORBIC ACID 500 MG TABLET PO SCH (09:13)
--- NOTE | 2016-10-29 11:00 | DS ---
Yudi Choi [id number] DATE OF ADMISSION: October 25, 2016 DATE OF DISCHARGE: October 29, 2016 DISCHARG DIAGNOSES: 1. Right femur intertrochanteric fracture. 2. Chronic anxiety with depression. 3. Chronic stage II kidney disease. 4. Cerebrovascular disease, not otherwise specified. 5. Gastroesophageal reflux disease. 6. Acute blood loss anemia. 7. Urinary tract infection, basically asymptomatic bacteriuria due to Proteus Mirabilis. 8. Mild hyponatremia resolved with hydration. 9. Osteoporosis. 10. Lumbar disc disease with chronic low back pain and chronic essential hypertension. CONSULTATIONS: Included orthopedic consultation with Dr. Gary Tan on October 26. PROCEDURES PERFORMED DURING THE HOSPITALIZATION: Include right hip intertrochanteric open reduction internal fixation with placement of an intramedullary nail done on October 26, 2016. TO SUMMARIZE THE ADMISSION AND HOSPITAL COURSE: The patient is an 86-year-old female resident of the [facility] followed by Dr. Philip who presented with a ground level fall and right hip pain and was found to have a right intertrochanteric hip fracture. Workup in the emergency department showed she was hypertensive with a blood pressure of 203/81. Hemoglobin was 13.8. Creatinine was 0.9. She was referred to the hospitalist service for admission. Orthopedic consult was obtained and she underwent operative repair. On admission she was noted to have some bacteriuria with normal nitrite and a normal white count. Cultures eventually grew Proteus Mirabilis. She was treated with Rocephin and transitioned to Keflex. She had a history of allergy to cefuroxime, but was able to tolerate cephalosporins without evidence of allergy. She had a drop in her hemoglobin down to a low of 8.5, but this was asymptomatic and felt to be stable. She was started on iron therapy for this. Arrangements were made for her to go [facility] for ongoing physical therapy and occupational therapy services. PHYSICAL EXAMINATION: VITAL SIGNS: At the time of discharge her vital signs showed a temperature of 98.9, pulse 93, blood pressure 108/69, respirations 18, oxygen saturation 91% to 93% on room air. Body mass index 28.9, weight 71.6 kg. GENERAL: This is a elderly female in no acute distress. HEENT: Shows mild pallor, but moist oral mucosa. NECK: Supple without lymphadenopathy or thyromegaly. LUNGS: Clear to auscultation bilaterally. CARDIOVASCULAR: Reveals a regular rate and rhythm without a murmur. ABDOMEN: Soft, nontender, nondistended with positive bowel sounds. EXTREMITIES: No peripheral edema. The right hip incision is clean, dry, and intact. LABORATORY STUDIES: On the day of discharge hemoglobin was 8.5, hematocrit 25.6. Chemistry profile done on October 28 showed a creatinine of 0.8, normal electrolytes. Urine culture growing Proteus Mirabilis sensitive to cephalosporins. DISPOSITION: [facility]. ACTIVITY: Physical therapy and occupational therapy services evaluate and treat have been ordered. She is weightbearing as tolerated on the right lower extremity. As tolerated. DIET: Regular texture. Bowel care, skin care, podiatry care per house protocol. Two step PPD if required. Pneumonia vaccination last given on February 09, 2011. Flu vaccination last given May 25, 2016. CODE STATUS: Do not resuscitate. ALLERGY: ALTHOUGH SHE HAS A DOCUMENTED ALLERGY TO CEFUROXIME, she is not allergic to Keflex or Rocephin. DISCHARGE MEDICATIONS: 1. Tylenol 650 mg every 4 hours as needed for pain or temp over 101. 2. Magnesium hydroxide/aluminum hydroxide 15 to 30 mL every 4 hours as needed for gastrointestinal upset. 3. She will take Cardizem CD 120 mg daily. 4. Voltaren gel up to 30 gm one application topically twice daily. 5. Mylanta 30 mL every hour as needed for dyspepsia. 6. Septra single strength tablet one tablet at bedtime to be started in a week. 7. Nortriptyline 30 mg at bedtime. 8. Wellbutrin SR 150 mg twice daily. 9. Prilosec 20 mg daily. 10. Cozaar 25 mg twice daily. 11. Colace 100 mg twice daily. 12. MiraLax 17 gm daily. 13. Tramadol 50 mg every 4 hours as needed for moderate pain. 14. Girdler 5/325 one to two every 6 hours as needed for severe pain. 15. Iron sulfate 325 mg daily. 16. Lovenox 30 mg subcutaneously daily for 30 days. 17. Keflex 500 mg twice daily for 5 days. 18. Vitamin C 250 mg daily. 19. Alprazolam 1 mg at bedtime as needed for insomnia. FOLLOW UP: She will have follow up arranged with Dr. Philip at [facility]. She will have a follow up CBC on November 05, results to Dr. Philip. She will follow up with Dr. Gary Tan on November 11 at 1:00 p.m. at [facility]. JOB: [id number] CC: Dr. Gary Philip
--- NOTE | 2016-10-29 11:55 | OP ---
Yudi MENG : [id number] DATE OF PROCEDURE: October 26, 2016 PREOPERATIVE DIAGNOSIS: Right hip intertrochanteric fracture. POSTOPERATIVE DIAGNOSIS: Right hip intertrochanteric fracture. PROCEDURE: RIGHT HIP INTERTROCHANTERIC FRACTURE OPEN REDUCTION INTERNAL FIXATION AND PLACEMENT OF INTRAMEDULLARY NAIL. SURGEON: Gary Tan M.D. INSURANCE CLAIMS SPECIALIST: Jeni Lorenzo ANESTHESIA: Spinal. FINDINGS: The patient had a comminuted greater trochanter in a varus position of the femoral neck. This was improved but I had difficulty maintain a more valgus position. The femoral neck continued to be in varus and the femoral neck screw on the PA was superior in the femoral head. I was able to get compression with the neck and shaft. The patient had a [employer] InterTAN long 36 mm x 10 mm nail. The patient's femoral canal was reamed to 12.5 to try to get the nail to sit lower in the femoral neck and a 90 mm femoral neck screw, 85 mm compression screw, a 35mm distal locking screw and 40 mm distal locking screws. CONDITION: Stable vital signs and transferred to the PACU. COMPLICATIONS: None. INTRAVENOUS FLUIDS: 2200 mL of Lactated Ringers. URINE OUTPUT: 120 mL ESTIMATED BLOOD LOSS: 150 mL SPECIMENS: N/A TOURNIQUET TIME: N/A IMPLANTS: The patient had a [employer] InterTAN 125 degree nail. DRAINS: N/A PLAN: The patient will be partial weight-bearing on the right lower extremity. Lovenox will start postoperative day number one, oxycodone was used for pain control along with morphine for pain control. INDICATIONS: The patient is an 86-year-old female who sustained a fall at [facility]. Prior to the surgery I spoke to the patient and her family about her condition. She has an intertrochanteric fracture which is unstable. I told her that without surgery I think that there is a low likelihood that she would successfully be able to walk. I talked to her about the risks as well as benefit of surgery. I told her that there is risk of infection, persistent pain, fracture nonunion, hardware complications, and worsening of her femoral fracture. I cannot guarantee that placing nail will guarantee healing, but I think healing is more likely if it is in a more anatomic position. Our goal is for the patient to stand out of bed and get out to get back to her ambulatory status. I spoke to the patient as well as her daughter and son on the phone. I spoke to them about the very high risks that are involved such as postoperative delirium, confusion, infection, nonunion, cut out of the femoral screw, renal insufficiency risk of DVT, stroke or even [place]. After a lengthy conversation both on the day of her admission and today the patient signed a consent form and was ready to proceed with surgery. PROCEDURE DESCRIPTION: The patient was seen in the preoperative area where I confirmed that the right side was the correct side. The patient was here with her daughter who is her power of privacy analyst however the patient agreed to proceed and signed a consent form. I signed her right leg with my initials and the word, "yes." Her right leg was shortened and still externally rotated. I attempted to answer all of her questions. She was then seen by the anesthesia team which talked about having a spinal anesthetic. The patient was then taken to the operating room where under sterile conditions the patient had a spinal placed. The patient was then transferred from the bed to the fracture table. The patient had a safety belt in placed, the nonoperative leg or left leg was placed a well leg stout and scissored to allow the C-arm to come between her two legs. A peroneal post was in place and the patient's right foot was padded with web roll before putting it into the traction arm. At this point the C-arm was brought in confirming that we could obtain appropriate AP and lateral. I manipulated the leg and thenraction was placed on the leg improving the position of the femoral neck to a more valgus position. At this point we began to prep for the surgery. The skin was draped out and using a chlorhexidine scrub and then paint was used to clean the right leg. At this point an Ioban and bath curtain was draped over the body and we performed a final time out confirming that the right side was the correct side and that our planned procedure was a right intertrochanteric fracture open reduction internal fixation with placement of an intramedullary nail and that we had the necessary equipment and we were ready to begin the surgery. I confirmed that 600 mg of clindamycin had be given approximately 30 minutes before this time out and we were ready to begin. At this point I used a sterile marker to aurora the Ioban with the greater trochanter. I then selected a position approximately 4 cm proximal to the greater trochanter and made an incision. I then put the pin on the tip of the greater trochanter which was comminuted. I checked on the AP and lateral planes. I placed this into the intramedullary canal because of the fracture pattern I took the one step reamer and reamed to the lesser troch. Because of the loss of greater trochanter there was very little bone laterally, however with my finger I could feel that there was enough to hold the tip of the nail. I then selected a ball tip guide wire and placed this in the canal. I had to use the finger device which was a long metal tube to help direct this down the shaft. I checked on the AP and lateral distally and thought that the tip was very close to the anterior cortex. I removed the ball tip guide wire, placed a bend in it so that it would be bent down away from the anterior cortex for reaming. With this in place I proceeded to start reaming. I first got chatter at 10, with this in mind I thought a 10 mm nail would be appropriate. I then proceeded to ream and half size this going up to a 10.5, 11.0 and then 11.5. At this point I asked the nurse to open a [employer] InterTAN 125 degree 10 mm nail. I used my measuring guide to measure nail length which I thought 36 mm was appropriate and this nail was opened. This was placed on the jig and inserted into the femur. I proceeded to place the nail and removed the ball tip guide wire. Unfortunately when in the process of doing this the femoral neck went back into more varus. I could see that the angle for which the femoral neck and screw would place the screw higher up on the femoral neck. I attempted a number of different maneuvers to change the angle decreasing traction. Using a Aguila to help disimpact the fracture however, I was not successful lowering the position of the nail. On the lateral view thought that I was in an okay position to put a screw through the center of the femoral neck. I removed the nail and reamed up to a 12.5 to see if this would allow the nail to sit lower in the femoral neck. The nail was then placed back in the patient. This minimally improved the position of the femoral neck. I considered a different device but was not sure I could appropriately change the neck angle successfully. Ultimately I felt that I could not improve on this position and elected to accept it. With the decision made I began to drill on the lateral cortex for the femoral screws. To do this I first on the lateral view obtained a good lateral at roughly 10 degrees of elevation to see both the anterior and posterior cortexes of the femoral neck. I proceeded to place my guide pin down the center of this switching to the AP view. This was more in the superior portion of the neck. As mentioned above. Understanding that potentially it may have some greater increase of cut out over time, I proceeded to place the guide pin and selected a 90 mm proximal screw and drilled the secondary screw. The screws were placed. This did have good compression of the fracture against the femoral shaft. The neck was still in some varus and I left the screw slightly proud because I was concerned about over compression and the patient's bone quality and no set screw was placed. Once these screws were in position they were proud on the lateral aspect of the cortex I then turned my attention to placing two distal locking screws. I obtained a perfect lateral of the shaft and used the perfect [place] technique. I then marked the lateral aspect of the leg and made two separate poke hole incisions with a #15 blade and proceeded to place two screws. The more distal screw measured 40 mm and was placed without incident. The second screw I initially measured at 32.[address] a screw, but it was too short. I removed this and selected a 35mm screw which had an appropriate bite. At this point we obtained final x-rays. All traction was taken off of the patient and I proceeded to irrigate each of the incisions. The incisions were then closed with interrupted #0 Vicryl, interrupted #2-0 Vicryl and jacob. The patient had a Xeroform and DSD applied to each of the wound sites. The well leg was taken out of the leg stout and the peroneal post was removed. The patient was awoken without difficulty from her intravenous sedation with her spinal. She was comfortable throughout the procedure. All sponge and needle counts were correct. We then transferred the patient carefully from the operating room table to the bed and she was transferred to the PACU. I talked to the patient, in the PACU she had adequate pain control. I spoke to her family. I explained to them that I think compared to some fixation she has a slightly higher risk of cut out and we will have to watch her fracture closely to make sure that it heals. Because of her problems with some balance I think that it would be difficult to keep her as partial weight-bearing. My recommendation will be weight-bearing as tolerated at this time. We will start Lovenox on postoperative day number one for DVT prophylaxis. We will use clindamycin for 24 hours or antibiotic coverage and we will carefully use oxycodone, morphine for pain control. Job [id number] CC: Norma Villagomez
--- NOTE | 2016-10-29 18:34 | PDOC43 ---
- Subjective Subjective: Reports Pain Tolerable, Denies Shortness of Breath, Denies Nausea - Objective Vital Signs Temperature 98.9 F 10/29/16 07:13 Pulse Rate 93 10/29/16 07:13 Respiratory Rate 18 10/29/16 07:13 Blood Pressure 108/69 10/29/16 07:13 O2 Saturation by Pulse Oximetry 97 10/29/16 08:00 Oxygen Delivery Method Room Air Oxygen Flow Rate 0 Laboratory 10/29/16 05:30 10/28/16 05:15 Intake and Output 10/27/16 10/28/16 10/29/16 23:59 23:59 23:59 Intake Total 5720 1378 270 Output Total 3220 1100 52 Balance 2500 278 218 General: No Acute Distress Lungs: Normal Air Movement Abdomen: No Tenderness Genitourinary: No Indwelling Urinary Cath Psych/Mental Status: Other (she is conversive but with some disorientation in recalling events) Peripheral Pulses: Right Dorsalis Pedis: 1+ - Right Lower Extremity Incision: Chris Intact (surgical incision are well approximated but no covered ) Motor: Extensor Hallucis Longus: 5/5, Tibialis Anterior: 5/5, Gastrocnemius: 5/5 , Peroneals: 5/5, Quadriceps: 4/5 Gross Sensation to Light Touch: Present: Deep Peroneal Nerve, Superficial Peroneal Nerve, Medial Plantar Nerve, Lateral Plantar Nerve, Sural Nerve, Saphenous Nerve Capillary Refill: < 3 Seconds Motion: knee ROM 0-50, mild mid thigh pain at 50 hip ROM flexion 0-80, ABD 0-20, ADD 0-10 - Problems (1) Fracture, intertrochanteric, right femur Qualifiers: Encounter type: initial encounter Fracture type: closed Qualifier Code: (S72.141A) Displaced intertrochanteric fracture of right femur, initial encounter for closed fracture Status: Acute (2) Acute blood loss anemia Status: Acute - Disposition POD#3 s/p right hip intertrochanteric frx ORIF with IMN --pain is well controlled --WBAT on the RLE for transfers bed to chair --Cont Lovenox for DVT --PT and OT cont to work with pt today --HCT is 25. If pt becomes orthostatic, would consider transfusion of PRBCs-- discussed with Hospitalist. --plan D/C to SNF today if meets criteria, ok to D/C from Ortho standpoint. --Dressings to surgical incisions today prior to D/C
[2016-10-29] MEDS ORDERED: BISACODYL 10 MG SUP PR PRN (19:39)
--- NOTE | 2016-11-03 08:25 | CONS ---
Britney Choi [id number] DATE OF ADMSSION: 11/03/2016 REQUESTING PHYSICIAN: Dr. Gary Tan CONSULTATION REQUESTED: Regarding assistance with managing chronic medical problems. REASON FOR ADMISSION: The patient is an 86-year-old female who had a comminuted intertrochanteric fracture of the right proximal femur on 10/25/2016. She underwent repair by Dr. Tan and had done well postoperatively, but since discharge she has had increasing pain and difficulty with any movement in her hip. Her pain medicines have been adjusted, but they were no satisfactory and more recent evaluation by Dr. Tan shows there has been change in position of the hardware and the hip x-ray today shows prior placement of femoral intramedullary tiara with two dynamic proximal right femoral screws. The appearance of the two screws has changed in interval from the intraoperative exam with the cephalid of the two screws projecting above the cortical surface of the right femoral head in the region of the right hip joint with some remodeling of the superior cortical margin of the acetabulum suggested. Dr. Tan has requested the patient be admitted for pain control with a mind to undergo a total hip revision possibly at [facility], transferring there tomorrow 11/03/2016. The patient reports she received some pain medicines and is feeling much better now although, is still having some discomfort, it is now more tolerable. 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 ALLERGIES: SHE IS LISTED BEING ALLERGIC TO CEFUROXIME WHICH CAUSED SWELLING AND MUSCLE WEAKNESS, HOWEVER, SHE HAS TOLERATED OTHER CEPHALOSPORINS WITHOUT DIFFICULTY INCLUDING KEFLEX RECENTLY. MEDICATIONS: 1. Acetaminophen 650 mg by mouth every 4 hours as needed. 2. Alprazolam 1 mg at bedtime as needed. 3. Vitamin C 250 mg daily. 4. Bupropion 150 mg by mouth twice daily. 5. Cephalexin 500 mg by mouth twice daily. 6. Voltaren topically twice daily. 7. Diltiazem CD 120 mg by mouth daily. 8. Docusate 100 mg by mouth twice daily. 9. Enoxaparin 30 mg subcutaneously daily. 10. Ferrous sulfate 325 mg daily. 11. Hydrocodone 5/325 one to two by mouth every 6 hours as needed. 12. Losartan 25 mg by mouth twice daily. 13. Nnva-v-hvgijtel 30 mL by mouth daily as needed. 14. Mylanta as needed. 15. Nortriptyline 30 mg at bedtime. 16. Omeprazole 20 mg by mouth daily. 17. Polyethylene glycol 17 gm by mouth daily. 18. Septra single strength 1 by mouth at bedtime for urinary tract suppression. 19. Tramadol 50 mg by mouth every 4 hours as needed was the prescription at discharge although, it had been revised upwards. SOCIAL HISTORY: She had been residing at the [facility] prior to her hip fracture. She was discharged to [facility] before this admission. She is . Previously she had been ambulatory with a walker and able to dress herself, but needed assistance for bathing. No smoking, alcohol, or other drug use. IMMUNIZATIONS: Included pneumovax 2010 and a flu vaccination June 2016. CODE STATUS: Shows POLST form dating to 2009 do not resuscitate. FAMILY HISTORY: No obtained at this time. REVIEW OF SYSTEMS: Eyes are okay. Ears are okay. Nose is okay. Mouth is okay. Teeth are okay. Neck is okay. Breathing is okay. No heart complaints. No stomach complaints other than constipation. She states she has not had a bowel movement in the last four days. No urinary complaints. No history of stroke. No skin complaints. Sleep has not been so great with her hip pain recently. Memory is okay. She states she does not feel loopy with the morphine she received here so far. PHYSICAL EXAMINATION: GENERAL: The patient is a pleasant 78-year-old nontoxic female who answers appropriately. VITAL SIGNS: Her temperature is 98.8, pulse 93, blood pressure 185/83, respirations 20, 95% saturation on room air. HEENT: Head is normocephalic, atraumatic. Eyes are grossly unremarkable. Ears: Externally unremarkable. Tympanic membranes appear to be normal. Hearing is not bad for age. Nose is unremarkable. Oropharynx: Dentition is well preserved. NECK: Unremarkable. LUNGS: Clear to auscultation bilaterally. HEART: Regular rate and rhythm with a 3/6 systolic murmur noted. ABDOMEN: Soft, nontender, nondistended. BREAST: Deferred.GENITOURINARY: Deferred. EXTREMITIES: Right hip with healing incisions noted and appear to be unremarkable otherwise. Range of motion is not tested. Patient with lower extremity stockings on. No edema is noted. Feet are good without ulceration. Pulses appear to be good throughout. SKIN: Unremarkable. NEUROLOGICAL: The patient got the month correct, the date she guessed the 7th, but had difficulty guessing the year. LABORATORY: She does not have any labs done so far on this admission. ASSESSMENT AND PLAN: 1. Status post open reduction internal fixation of right hip and intramedullary tiara with screws now appearing to have migration and interfering with ambulation. Appreciate Dr. Tan care and is anticipated to be going to [facility] tomorrow. Appreciate Dr. Tan revision of pain medicines which appear to be working well for her at this time. 2. Hypertension. We will continue on current medications at this time. 3. Gastroesophageal reflux disease. Anticipate use of Proton pump inhibitor such as Protonix. 4. Chronic kidney disease. Currently her last creatinine suggested stage II chronic kidney. We will be rechecking this. 5. Osteoporosis. Anticipate follow up as outpatient. 6. History of recurrent urinary tract infection currently on Keflex and anticipate resuming the Septra once Keflex is done, which should be 11/03/2016. Her previous culture had shown Proteus Mirabilis. 7. History of allergy to cefuroxime, but patient tolerated Rocephin and Keflex well. 8. Systolic heart murmur noted. We will check a BNP. 9. History of small vessel cerebrovascular disease, not otherwise addressed. 10. Lumbar degenerative disc disease, not otherwise addressed. 11. Constipation. Anticipate adding Lactulose and Senna to her MiraLax that was started by Dr. Tan. 12. Do not resuscitate status per POLST form dating to 05/15/2010. 13. Immunizations. The patient is up to date on influenza and pneumovax. JOB: [id number] CC: Dr. Cedrick Tan
== END 2016-10-29 13:00 | DRG 481 ==
LOC: ED 10:43 → MS 12:41
PROVIDERS: ADMIT Family Medicine; ATTEND Family Medicine
PROC: 0QS606Z Reposition Right Upper Femur with Intramedullary Internal Fixation Device, Open Approach (ICD-10-PCS; principal; 2016-10-26)
DX: S72.141A Displaced intertrochanteric fracture of right femur, initial encounter for closed fracture (principal); D62 Acute posthemorrhagic anemia; N39.0 Urinary tract infection, site not specified; E87.1 Hypo-osmolality and hyponatremia; W19.XXXA Unspecified fall, initial encounter; I12.9 Hypertensive chronic kidney disease with stage 1 through stage 4 chronic kidney disease, or unspecified chronic kidney disease; N18.3 Chronic kidney disease, stage 3 (moderate); M51.36 Other intervertebral disc degeneration, lumbar region; K21.9 Gastro-esophageal reflux disease without esophagitis; F41.8 Other specified anxiety disorders; I67.9 Cerebrovascular disease, unspecified; M81.0 Age-related osteoporosis without current pathological fracture; Z87.440 Personal history of urinary (tract) infections; K57.90 Diverticulosis of intestine, part unspecified, without perforation or abscess without bleeding; Z66 Do not resuscitate; B96.4 Proteus (mirabilis) (morganii) as the cause of diseases classified elsewhere

== ENCOUNTER 2016-11-02 18:08 | Inpatient (IN) | payer MEDICARE ==
[2016-11-02] MEDS ORDERED: BISACODYL 10 MG SUP PR PRN (19:43)
[2016-11-02] MEDS ORDERED: ACETAMINOPHEN 325 MG TABLET PO PRN ×2 (19:43→19:46)
[2016-11-02] MEDS ORDERED: BLISTEX LIPSTICK 1 EACH TP PRN (19:43)
[2016-11-02] MEDS ORDERED: MAGNESIUM HYDROXIDE 30 ML UDCUP PO PRN ×2 (19:43→19:46)
[2016-11-02] MEDS ORDERED: MENTHOL/CETYLPYRD 1 EACH LOZENGE PO PRN (19:43)
[2016-11-02] MEDS ORDERED: ONDANSETRON 4 MG/2ML 2 ML VIAL IV PRN (19:43)
[2016-11-02] MEDS ORDERED: ALPRAZOLAM 1 MG TABLET PO PRN (19:46)
[2016-11-02] MEDS ORDERED: MORPHINE SULFATE 4 MG/ML SYRINGE IV PRN (20:16)
[2016-11-02] MEDS ORDERED: IV START KIT ONE (20:21)
[2016-11-02 20:43] VITALS: BMI 28.1
[2016-11-02] MEDS ORDERED: TRIMETH PO SCH (21:00)
[2016-11-02] MEDS ORDERED: SULFAMETH PO SCH (21:00)
[2016-11-02] MEDS ORDERED: NORTRIPTYLINE HCL 10 MG CAPSULE PO SCH (21:00)
[2016-11-02] MEDS ORDERED: MAGNESIUM HYDROXIDE/AL HYDROX 30 ML UDCUP PO PRN (21:02)
[2016-11-02] MEDS ORDERED: LACTULOSE 20 G/30 ML UDCUP PO PRN (21:47)
--- NOTE | 2016-11-02 21:57 | PDOC36 ---
Provider Note Subject: Please see dictated H and P for full note CC: "I have more pain in my right hip" HPI: The patient is a 86 yr old female who sustained a fall and an injury to her right hip just over 1 week ago. The patient sustained a right intertrochanteric fracture treated with an intramedullary nail. The patient was discharged from the hospital but her family called due to her increase in pain at the rehab facility today. They did not think the rehab was taking appropriate care of her and wanted her evaluate. In the hospital the patient was doing fairly well with transfers but today she developed increase pain in her right groin. She has more problems moving her right leg. Pt was seen and evaluated in the office and determined to have cut out of her femoral head screw which is now protruding in the acetabulum. I elected to admit the patient to assist with adequate pain control. Plan: I spoke to the orthopaedic traumatologist regarding a transfer to [facility] with the attending for Dr. Trino Lara. The plan will be for the patient to be admitted to [facility] for pain control and then transferred on Wednesday to [facility].
[2016-11-02] MEDS ORDERED: SENNOSIDES 8.6 MG TABLET PO SCH (22:00)
[2016-11-02] MEDS: DOCUSATE SODIUM 100 MG CAPSULE PO SCH (22:22)
[2016-11-02] MEDS: LOSARTAN POTASSIUM 50 MG TABLET PO SCH (22:22)
[2016-11-02] MEDS: BUPROPION HCL 150 MG SR TABLET PO SCH (22:22)
[2016-11-02] MEDS: MORPHINE SULFATE 2 MG/ML SYRINGE IV PRN (22:22)
[2016-11-02 23:03] LABS: ABSOLUTE NEUTROPHIL COUNT 9.3 K/mm3 (1.8-7.7); BASO % 0.3 % (0.2-1.0); EOS # 0.2 (0.0-0.5); EOS % 1.6 % (0.9-2.9); HEMATOCRIT 27.5 % (37.0-47.0); IMM NEUT # 0.2 K/mm3 (0-0.2); IMM NEUT% 1.3 % (0-1); LYMPH # 1.6 (1.0-4.8); LYMPH % 12.9 % (15-45); MEAN CELL VOLUME 100.7 fl (81.0-99.0); MEAN CORPUSCULAR HGB CONC 32.7 g/dl (33.0-37.0); MEAN PLATELET VOLUME 9.2 fl (7.4-10.4); MONO # 0.9 (0.0-0.8); NEUT % 76.9 % (43-75); PLATELET COUNT 328 K/mm3 (130-400); RED CELL DISTRIBUTION WIDTH 13.5 % (11.5-14.5)
[2016-11-02 23:25] LABS: ALB/GLOB RATIO 1.1 (>1.0); ALBUMIN 3.2 gm/dL (3.5-5.7); CALCIUM 9.1 mg/dL (8.6-10.3)
[2016-11-03] MEDS: MORPHINE SULFATE 2 MG/ML SYRINGE IV PRN ×4 (00:33→14:33)
[2016-11-03] MEDS ORDERED: IV START KIT ONE ×2 (02:06→03:06)
[2016-11-03] MEDS ORDERED: SODIUM CHLORIDE 0.9% FLUSH 10 ML ONE ×2 (02:07→03:06)
--- NOTE | 2016-11-03 07:54 | PDOC43 ---
- Subjective Subjective: Reports Pain Tolerable (Pt confused this morning. Still has right hip pain), Denies Chest Pain, Denies Shortness of Breath, Denies Nausea, Denies Vomiting, Denies Fever - Objective Vital Signs Temperature 98.3 F 11/03/16 07:00 Pulse Rate 97 11/03/16 07:00 Respiratory Rate 18 11/03/16 07:00 Blood Pressure 178/82 11/03/16 07:00 O2 Saturation by Pulse Oximetry 94 11/03/16 07:00 Oxygen Delivery Method Room Air Oxygen Flow Rate 0 Laboratory 11/02/16 22:57 11/02/16 22:57 11/02/16 22:57 RBC 2.73 L MCV 100.7 H MCH 33.0 H MCHC 32.7 L Estimated GFR 94 H Total Protein 6.0 L Albumin 3.2 L % Immature Granulocyt 1.3 H Active Medication Orders Category Date Time Status Acetaminophen [Tylenol] Med 11/02/16 19:43 Active 325 - 650 mg PO Q4H PRN Alprazolam [Xanax] Med 11/02/16 19:46 Active 1 mg PO BEDTIME PRN Ascorbic Acid [Vitamin C] Med 11/03/16 09:00 Active 250 mg PO DAILY Bisacodyl [Dulcolax] Med 11/02/16 19:43 Active 10 mg AL DAILY PRN Bupropion HCl [Wellbutrin Sr] Med 11/02/16 21:00 Active 150 mg PO BID Diltiazem HCl Cd [Cardizem Cd] Med 11/03/16 09:00 Active 120 mg PO DAILY Docusate Sodium [Colace] Med 11/02/16 21:00 Active 100 mg PO BID Enoxaparin Sodium [Lovenox] Med 11/03/16 09:00 Active 30 mg SUB-Q DAILY FERROUS SULFATE (65 Fe) [Ferrous Sulfate] Med 11/03/16 09:00 Active 325 mg PO DAILY Lactulose [Enulose] Med 11/02/16 21:47 Active 10 g PO DAILY PRN Lip [place] [Blistex] Med 11/02/16 19:43 Active 1 each TP PRN PRN Losartan Potassium [Cozaar] Med 11/02/16 21:00 Active 25 mg PO BID Magnesium Hydroxide [Milk of Magnesia] Med 11/02/16 19:46 Active 30 ml PO DAILY PRN Magnesium Hydroxide/Al Hydrox [Maalox] Med 11/02/16 21:02 Active 30 ml PO Q6H PRN Menthol/Cetylpyridinium [Cepacol] Med 11/02/16 19:43 Active 1 each PO PRN PRN Morphine Sulfate Med 11/02/16 19:43 Active 2 - 4 mg IV Q4H PRN Morphine Sulfate Med 11/02/16 20:16 Active 2 - 4 mg IV Q4H PRN Nortriptyline HCl [Pamelor] Med 11/02/16 21:00 Active 30 mg PO BEDTIME Ondansetron 4 mg/2ml Vial [Zofran] Med 11/02/16 19:43 Active 4 mg IV Q6H PRN Pantoprazole Sodium [Protonix] Med 11/03/16 09:00 Active 40 mg PO DAILY Polyethylene Glycol 3350 [Miralax] Med 11/03/16 09:00 Active 17 g PO DAILY Sennosides [Senokot] Med 11/02/16 22:00 Active 8.6 mg PO BEDTIME Sodium Chloride 0.9% Flush [Normal Saline 10ml Flush] Med 11/02/16 19:43 Active 10 - 50 ml IV PRN PRN Sodium Chloride 0.9% Flush [Normal Saline 10ml Flush] Med 11/03/16 01:00 Active 10 ml IV Q8HR Sulfamethoxazole/Trimethoprim [Septra Ss] Med 11/02/16 21:00 Active 1 each PO BEDTIME Intake and Output 11/01/16 11/02/16 11/03/16 23:59 23:59 23:59 Intake Total 350 Output Total 1468 Balance -1118 General: Afebrile - Right Lower Extremity Incision: Dressing Clean/Dry/Intact (PT has been taking off her dressing and confused in the night. Any rotation of the leg is painful for the patient) Motor: Extensor Hallucis Longus: 4/5, Tibialis Anterior: 4/5, Gastrocnemius: 4/5 , Peroneals: 4/5 Gross Sensation to Light Touch: Present: Deep Peroneal Nerve, Superficial Peroneal Nerve Capillary Refill: < 3 Seconds - Problems (1) Fracture, intertrochanteric, right femur Status: Acute - Disposition HD#2 s/p admission for pain control after hardware cut out from a right IT fracture ORIF NWB on the RLE. Pt will be transferred to [facility] for further treatment. Continue on Lovenox for DVT prophylaxis. Will continue to minimize narcotics to help with her confusion.
[2016-11-03] MEDS ORDERED: ENOXAPARIN SODIUM 30 MG/0.3 ML SYRINGE SUB-Q SCH (09:00)
[2016-11-03] MEDS ORDERED: DILTIAZEM HCL CD 120 MG CAPSULE PO SCH (09:00)
[2016-11-03] MEDS ORDERED: ASCORBIC ACID 250 MG TABLET PO SCH (09:00)
[2016-11-03] MEDS ORDERED: POLYETHYLENE GLYCOL 3350 17 G POWD.SUSP PO SCH (09:00)
[2016-11-03] MEDS ORDERED: PANTOPRAZOLE 40 MG TABLET DR PO SCH (09:00)
[2016-11-03] MEDS ORDERED: FERROUS SULFATE (65 Fe) 325 MG TABLET PO SCH (09:00)
[2016-11-03] MEDS: DOCUSATE SODIUM 100 MG CAPSULE PO SCH (09:17)
[2016-11-03] MEDS: LOSARTAN POTASSIUM 50 MG TABLET PO SCH (09:18)
[2016-11-03] MEDS: BUPROPION HCL 150 MG SR TABLET PO SCH (09:25)
--- NOTE | 2016-11-03 11:49 | HP ---
LEOPOLDO MENG : 1930 [id number] DATE OF ADMISSION: November 02, 2016 CHIEF COMPLAINT: My right hip is hurting worse. HISTORY OF PRESENT ILLNESS: The patient is an 86-year-old female who was admitted to the hospital originally on 10/25/16 with a right hip intertrochanteric fracture. The patient underwent surgery on her right hip a week and a half ago with placement of a cephalomedullary nail. The patient was in the hospital from October 25 to October 29 for which she was discharged to a rehab facility. The patient was transferred to [facility] and the family called me yesterday saying she had increased pain. In the hospital, because of her underlying dementia she was weightbearing as tolerated however, we did have concern about the possibility of her maintaining any precautions. For this reason, we had her come to the office today where she was evaluated. She was determined to have increased pain. Xrays demonstrated a cutout of the femoral nail through the head. Because of her increased pain I elected to admit her to [facility]. The patient comes in today stating that she has pain in her groin and hip. The family has some concerns about how much monitoring she has had done at her [facility] facility. PAST MEDICAL HISTORY: Significant for hypertension, degenerative lumbar disease, GERD, chronic anxiety, depression and dementia. Chronic renal disease, history of small vessel strokes, osteoporosis, recurrent UTI's, diverticulosis. ALLERGIES: The patient has an allergy to Amlodipine as well as Ceftin. This allergic reaction is weakness. PAST SURGICAL HISTORY: Significant for a bladder sling operation, removal of ovarian tumor, partial colectomy, cholecystectomy, bilateral cataracts. SOCIAL HISTORY: The patient is . She normally lives at [facility]. She does require a walker at baseline. She does get up and needs assistance for bathing. CODE STATUS: In terms of code status, she is a DNI/DNR, which we suspended for our previous surgery. REVIEW OF SYSTEMS: The patient and her family deny any recent fevers, colds, any noticeable falls although the patient has not been following precautions at her rehab facility. PHYSICAL EXAMINATION: Vital signs: Patient is afebrile, vital signs are stable. HEENT: EOMI bilaterally. Neck shows no distension and is supple. HEART: Regular rate with a systolic murmur that is probably 2/6. CHEST: Clear to auscultation bilaterally. She has the inability to really move her right lower extremity. A log roll test causes pain in her right groin. She has gross sensation to light touch in the distribution of DP, SP, MP, LP, sural and saphenous nerves. She has capillary refill less than 2 seconds. LABS: Electrolytes: Sodium: 136 Potassium: 3.9 Chloride: 99 Carbon Dioxide: 30 BUN: 17 Creatinine: 0.6 WBC: 12.1 Hematocrit: 27.5 Platelets: 328 RADIOGRAPHS: Xrays demonstrate cutout of the cephalomedullary device through the superior aspect of the femoral neck. This is protruding into the acetabulum. This is a [employer] nail. IMPRESSION: Cutout of cephalomedullary device through superior aspect of the femoral neck, right hip. PLAN: The patient is doing better from pain control with IV pain medicine however, she does have some confusion at baseline. I talked to her family at length. I think this revision surgery is best handled by a traumatologist considering placement of a blade plate, a locking plate or potentially doing a hip replacement, which may be one surgery to treat the patient. I spoke to the PA that works with Dr. Trino Lara at [facility] about possible transfer. We will see about coordinating this. The patient should be nonweightbearing on this side. KVNGP: qi CC: Norma Villagomez
[2016-11-03] MEDS ORDERED: ALPRAZOLAM 1 MG TABLET PO ONE (12:56)
--- NOTE | 2016-11-03 13:42 | PDOC43 ---
- Subjective Chief Complaint: Failure of hip ORIF, with uncontrolled pain. Patient/staff still waiting to hear from [facility] about transfer. . Patient reports feeling a little tremulous/jittery. - Objective Vital Signs Temperature 98.3 F 11/03/16 07:00 Pulse Rate 97 11/03/16 07:00 Respiratory Rate 18 11/03/16 13:00 Blood Pressure 178/82 11/03/16 07:00 O2 Saturation by Pulse Oximetry 94 11/03/16 07:00 Oxygen Delivery Method Room Air Oxygen Flow Rate 0 Vital Signs Last 12 Hours Temp Pulse Resp BP Pulse Ox 11/03/16 13:00 18 11/03/16 07:00 98.3 F 97 18 178/82 94 11/03/16 01:43 98 F 95 20 157/74 93 Intake and Output 11/01/16 11/02/16 11/03/16 23:59 23:59 23:59 Intake Total 600 Output Total 1470 Balance -870 General: Alert, Other (appears slightly disoriented.) HEENT: Atraumatic Lungs: Clear to Auscultation Bilaterally Cardiovascular: Regular Rate and Rhythm, Murmur Abdomen: Soft, Normal Bowel Sounds, Non-Distended Extremities: Other (stocking on R lower leg. perfusion good.) Skin: Normal Color Neurological: Normal Speech Psych/Mental Status: Other (appears sl tremulous. Asks to have her daughter Jane sent in, if she is out there.) Laboratory 11/02/16 22:57 11/02/16 22:57 11/02/16 22:57 RBC 2.73 L MCV 100.7 H MCH 33.0 H MCHC 32.7 L Estimated GFR 94 H Total Protein 6.0 L Albumin 3.2 L % Immature Granulocyt 1.3 H Laboratory Tests 11/02/16 22:57 B-Natriuretic Peptide 30 Current Medications: Current meds reviewed in EMR. Active Medications Acetaminophen (Tylenol) 325 - 650 mg PO Q4H PRN PRN Reason: Mild Pain/Temperature >100.5 F Al Hydroxide/Mg Hydroxide (Maalox) 30 ml PO Q6H PRN PRN Reason: upset stomach or indigtestion Alprazolam (Xanax) 1 mg PO BEDTIME PRN PRN Reason: Insomnia Last Admin: 11/03/16 12:59 Dose: 1 mg Ascorbic Acid (Vitamin C) 250 mg PO DAILY [facility] Last Admin: 11/03/16 09:18 Dose: 250 mg Benzocaine/Menthol (Cepacol) 1 each PO PRN PRN PRN Reason: Sore Throat Bisacodyl (Dulcolax) 10 mg LA DAILY PRN PRN Reason: Constipation Last Admin: 11/03/16 09:18 Dose: 10 mg Bupropion HCl (Wellbutrin Sr) 150 mg PO BID [facility] Last Admin: 11/03/16 09:25 Dose: 150 mg Diltiazem HCl (Cardizem Cd) 120 mg PO DAILY [facility] Last Admin: 11/03/16 09:18 Dose: 120 mg Docusate Sodium (Colace) 100 mg PO BID [facility] Last Admin: 11/03/16 09:17 Dose: 100 mg Enoxaparin Sodium (Lovenox) 30 mg SUB-Q DAILY [facility] Last Admin: 11/03/16 09:19 Dose: Not Given Ferrous Sulfate (Ferrous Sulfate) 325 mg PO DAILY [facility] Last Admin: 11/03/16 09:17 Dose: 325 mg Lactulose (Enulose) 10 g PO DAILY PRN PRN Reason: Constipation Losartan Potassium (Cozaar) 25 mg PO BID [facility] Last Admin: 11/03/16 09:18 Dose: 25 mg Magnesium Hydroxide (Milk Of Magnesia) 30 ml PO DAILY PRN PRN Reason: Constipation Morphine Sulfate (Morphine Sulfate) 2 - 4 mg IV Q4H PRN PRN Reason: Pain (Breakthrough) Last Admin: 11/03/16 11:53 Dose: 2 mg Morphine Sulfate (Morphine Sulfate) 2 - 4 mg IV Q4H PRN PRN Reason: Pain (Breakthrough) Nortriptyline HCl (Pamelor) 30 mg PO BEDTIME [facility] Last Admin: 11/02/16 22:23 Dose: 30 mg Ondansetron HCl (Zofran) 4 mg IV Q6H PRN PRN Reason: Nausea/Vomiting Pantoprazole Sodium (Protonix) 40 mg PO DAILY [facility] Last Admin: 11/03/16 09:17 Dose: 40 mg Petrolatum/Paraffin/Mineral Oil (Blistex) 1 each TP PRN PRN PRN Reason: Dry and/or chapped lips Polyethylene Glycol/Electrolytes (Miralax) 17 g PO DAILY [facility] Last Admin: 11/03/16 09:19 Dose: Not Given Senna (Senokot) 8.6 mg PO BEDTIME [facility] Last Admin: 11/02/16 22:23 Dose: Not Given Sodium Chloride (Normal Saline 10ml Flush) 10 - 50 ml IV PRN PRN PRN Reason: IV flush Sodium Chloride (Normal Saline 10ml Flush) 10 ml IV Q8HR [facility] Last Admin: 11/03/16 11:53 Dose: 10 ml Trimethoprim/Sulfamethoxazole (Septra Ss) 1 each PO BEDTIME [facility] Last Admin: 11/02/16 22:23 Dose: 1 each - Problems: Assessment/Plan (1) Femur fracture, right Qualifiers: Encounter type: subsequent encounter Femur location: intertrochanteric Fracture type: closed Fracture alignment: displaced Qualifier Code : () Status: Acute Assessment/Plan: now with hardware loosening/migration interfering with movement. Pain control ok, but appears to have some mild confusion from meds. Anticipating transfer to [facility] for hip revision, appreciate their care. (2) Acute blood loss anemia Status: Acute Assessment/Plan: stable. (3) HTN (hypertension), benign Status: Chronic Assessment/Plan: mildly elevated. Continuing on regular meds. (4) Anxiety and depression Status: Chronic Assessment/Plan: Some anxiety, agitation suggested. Consider for low dose benzodiazepine. (5) CKD (chronic kidney disease) stage 3, GFR 30-59 ml/min Status: Chronic Assessment/Plan: stable. (6) Systolic murmur Status: Chronic Assessment/Plan: Will consider for echo if transfer is delayed. VTE Prophylaxis: enoxaparin Disposition: anticipate going to [facility], today.
[2016-11-03] MEDS ORDERED: MORPHINE SULFATE 2 MG/ML SYRINGE IV ONE (14:34)
[2016-11-03 14:58] VITALS: BP 142/66
--- NOTE | 2016-11-03 16:07 | PDOC36 ---
Provider Note Subject: SPoke with Dr. Long, Hospitalist at [facility], regarding patient transfer. Physician accepted the patient in transfer and will consult orthopedics for femur repair.
--- NOTE | 2016-11-03 18:14 | TS ---
LEOPOLDO MENG : 1930 DATE OF ADMISSION: November 02, 2016 DATE OF TRANSFER: November 03, 2016 HOSPITAL COURSE: The patient is an 86-year-old female who presented to my office yesterday with increased pain. Evaluation of the patient demonstrated pain by her right leg and groin. X-rays were obtained confirming that the patient had cutout of her femoral head and neck with protruding cephalomedullary screw from her [employer] device in to the acetabulum. Because of her persistent pain, the patient was admitted to [facility]. I spoke to [facility] orthopedic trauma team about potentially performing a revision, open reduction internal fixation versus possible arthroplasty for this elderly female. I spoke to the patient and her family regarding her options. They agreed with the idea of the transfer. Because of concern for beds, the feeling was that the patient would be transferred on November 03, 2016. The patient overnight from November 02, 2016 had some more confusion. Her electrolytes were all within normal limits. Hematocrit is 27.5 with white blood cell count 12 and platelets of 328. The plan will be for her to be evaluated by Dr. Lara and potentially improving her pain and discomfort with a revision surgery.
== END 2016-11-03 18:00 | disposition short-term general hospital (02) | DRG 536 ==
LOC: MS 18:08 → OBSVTOIN 19:43
PROVIDERS: ADMIT Orthopaedic Surgery; ATTEND Orthopaedic Surgery
DX: S72.141A Displaced intertrochanteric fracture of right femur, initial encounter for closed fracture (principal); W19.XXXA Unspecified fall, initial encounter; F03.90 Unspecified dementia, unspecified severity, without behavioral disturbance, psychotic disturbance, mood disturbance, and anxiety; I10 Essential (primary) hypertension; M51.36 Other intervertebral disc degeneration, lumbar region; K21.9 Gastro-esophageal reflux disease without esophagitis; F41.9 Anxiety disorder, unspecified; F32.9 Major depressive disorder, single episode, unspecified